=== PATIENT | female | born 1975 | race American Indian/Alaskan Native ===

== ENCOUNTER 2021-05-06 22:31 | Inpatient (IN) | payer OTHER ==
[2021-05-06] MEDS ORDERED: ONDANSETRON 4 MG/2 ML INJ IV ONE ×2 (22:34→23:33)
[2021-05-06] MEDS ORDERED: niCARdipine DRIP 40 MG/200 ML BAG IV ONE (22:42)
--- NOTE | 2021-05-06 23:05 | Cat Scan Report ---
CT HEAD WITHOUT CONTRAST INDICATION / CLINICAL INFORMATION: CODE STROKE PROTOCOL!!! Stroke-Like symptoms. TECHNIQUE: All CT scans at this location are performed using CT dose reduction for ALARA by means of automated exposure control. COMPARISON: None available. FINDINGS: BRAIN PARENCHYMA: No acute intracranial hemorrhage. 2 focal areas of hypoattenuation within the left cerebellar hemisphere. These appear to be at least subacute in age. Otherwise, no recent infarct. No significant mass effect or midline shift. VENTRICULAR SYSTEM/EXTRA-AXIAL SPACES: Ventricles are normal for age. No extra-axial fluid collection . ORBITS: Normal as visualized. SKELETAL SYSTEM/SOFT TISSUES: Normal bones and soft tissues. PARANASAL SINUSES/MASTOID AIR CELLS: No significant abnormality. ADDITIONAL FINDINGS: None. IMPRESSION: 1. 2 focal areas of hypoattenuation within the left cerebral hemisphere are most consistent with infa rct, though these areas appear to be at least subacute in age. Recommend correlation with MRI. 2. Otherwise, no acute intracranial abnormality. No acute intracranial hemorrhage. Signer Name: Long Romero MD Signed: 05/06/2021 11:01 PM Workstation Name: [id number]
[2021-05-06] MEDS ORDERED: CLOPIDOGREL 300 MG TAB PO ONE (23:15)
[2021-05-06] MEDS ORDERED: ASPIRIN 325 MG TAB PO ONE (23:15)
[2021-05-06] MEDS ORDERED: INSULIN REGULAR, HUMAN 100 UNITS/1 ML IV ONE (23:19)
--- NOTE | 2021-05-06 23:19 | Consultation ---
History of Present Illness History of present illness: [facility] Consult Note # Demographics Consult Type: Acute Stroke Level 1 (0-4.5 hrs) Patient Location: Emergency Room First Name: Leslie Pizarro Last Name: Ivy Date of : 1975 Age: 45 Gender: Female Time of Initial Page ( Time): 05/06/2021, 22:36 Time of Return Call ( Time): 05/06/2021, 22:36 # HPI Chief Complaint: weakness (focal) History: 45F with HTN, DM presents with left-sided weakness and tingling, trouble speaking. Symptom onset 2129. Has not been taking medications for several weeks. Was having a headache for a few days prior. BP 232/159 with EMS; fingerstick 497. Started vomiting on arrival to ED. Has history of sinus problems, thought she was having sinus headaches, but all the pain was in the back left side of the head. Pain stopped and she suddenly lost control of her left side. # Scores Time of exam and NIHSS (): 05/06/2021, 22:48 Level of Consciousness 1a: [0] = Alert; keenly responsive LOC Questions 1b: [0] = Answers both questions correctly LOC Commands 1c: [0] = Performs both tasks correctly Best Gaze 2: [0] = Normal Visual 3: [0] = No visual loss Facial Palsy 4: [1] = Minor paralysis Motor Arm Left 5a: [0] = No drift Motor Arm Right 5b: [0] = No drift Motor Leg Left 6a: [1] = Drift Motor Leg Right 6b: [0] = No drift Limb Ataxia 7: [1] = Present in one limb Sensory 8: [0] = Normal Best Language 9: [0] = No aphasia Dysarthria 10: [1] = [id number] dysarthria Extinction and Inattention 11: [0] = No abnormality NIHSS Total: 4 # Data Time Head CT personally read by me ( Time): 05/06/2021, 22:[address]: no bleed early ischemic change preliminarily reviewed by me, please refer to radiology read for official reading left cerebellar and occipital # Assessment Impression: Ischemic Stroke (Acute) # Plan Thrombolytic/Intervention: NOT IV Thrombolytic or IA Intervention Thrombolytic Exclusion (< 3 hour window): non-disabling deficit Intraarterial Exclusion: clinically consistent with small vessel disease Target Blood Pressure: SBP < 220 DBP < 105 Labs: hemoglobin A1c lipid panel Imaging: (urgency: routine): MR Angiogram Head without contrast MR Angiogram Neck with contrast MRI Brain without contrast Diagnostic Test: echo with bubble study Therapy/Evaluation: PT/OT evaluation speech/swallow consultation Medication: ASA 325 then 81 daily, Plavix 300 x1 then 75 daily x3 weeks (3 weeks DAPT then ASA monotherapy), atorvastatin 80 then tailor daily dose to LDL < 70 goal DVT Prophylaxis: SCD chemical DVT prophylaxis Other: permissive hypertension telemetry monitoring I have discussed my recommendations with the referring provider Additional Recommendations: Treatment of hyperglycemia to goal blood sugar 80- 180 # Logistics Telemedicine: Interactive 2 way audio and visual telecommunication technology was utilized during this visit Electronically signed at 05/06/2021 23:18 (Eastern Time) by Gio Ward MD Medications and Allergies Allergies Allergy/AdvReac Type Severity Reaction Status Date / Time No Known Allergies Allergy Unverified 05/06/21 22:36 Active Meds: Active Medications Atorvastatin Calcium (Atorvastatin 40 Mg Tab) 80 mg PO QHS NORMAN Nicardipine/Sodium Chloride (Cardene Drip 40 Mg/200 Ml) 40 mg in 200 mls @ 25 mls/hr IV ONCE ONE; Protocol Stop: 05/07/21 06:41 Physical Examination - Vital Signs Vital Signs: Vital Signs Temp Pulse Resp BP Pulse Ox 98 F 82 18 205/131 98 05/06/21 23:14 05/06/21 23:14 05/06/21 23:14 05/06/21 23:14 05/06/21 23:14 Results - Laboratory Findings Abnormal Lab Findings: Abnormal Labs 05/06/21 23:15 POC Glucose 494 H
[2021-05-06 23:21] LABS: Basophils # (Auto) 0.1 K/mm3 (0.0-0.1); Basophils % (Auto) 0.9 % (0.0-1.8); Eosinophils # (Auto) 0.1 K/mm3 (0.0-0.4); Eosinophils % (Auto) 0.9 % (0.0-4.3); Hematocrit 32.8 % (30.3-42.9); Hemoglobin 10.1 gm/dl (10.1-14.3); Lymphocytes # (Auto) 2.1 K/mm3 (1.2-5.4); Lymphocytes % (Auto) 14.9 % (13.4-35.0); Mean Corpuscular HGB Conc 31 % (30-34); Monocytes # (Auto) 0.8 K/mm3 (0.0-0.8); Monocytes % (Auto) 5.6 % (0.0-7.3); Platelet Count 497 K/mm3 (140-440); Red Blood Count 4.93 M/mm3 (3.65-5.03); Red Cell Distribution Width 19.3 % (13.2-15.2)
--- NOTE | 2021-05-06 23:26 | Emergency Department Report ---
ED Neuro Deficit HPI - General Chief Complaint: Neuro Symptoms/Deficit Stated Complaint: STROKE Time Seen by Provider: 05/06/21 22:34 Source: EMS Mode of arrival: Stretcher Limitations: No Limitations - History of Present Illness Initial Comments: Patient is a 45-year-old F Vincentian female with past medical history of hypertension and diabetes who is been medically noncompliant with medications for the last several weeks who is presenting with difficulty speaking and ataxia to the left upper extremity with weakness to the left arm and left leg. Patient states that for the last 2 days she has had headache which she attributed to some sinus issues. States she has felt some congestion. Patient states today at approximately 2130 she started having weakness to her left arm and leg. States she had difficulty walking. Patient with slurred speech and states it is difficult to control her left arm. She denies any chest pain shortness of breath fevers or chills. Patient states she has quite a bit of nausea. In route patient blood pressure was 230 systolic. - Related Data Allergies/Adverse Reactions: Allergies Allergy/AdvReac Type Severity Reaction Status Date / Time No Known Allergies Allergy Unverified 05/06/21 22:36 ED Review of Systems ROS: Stated complaint: STROKE Other details as noted in HPI Comment: All other systems reviewed and negative ED Past Medical Hx - Past Medical History Hx Hypertension: Yes Hx Diabetes: Yes - Social History Smoking Status: Never Smoker ED Neuro Physical Exam - General Limitations: No Limitations General appearance: alert, in distress (diaphoretic) Suspected Stroke: Yes - Head Head exam: Present: atraumatic, normocephalic - Eye Eye exam: Present: normal appearance, PERRL, EOMI - ENT ENT exam: Present: mucous membranes moist - Neck Neck exam: Present: normal inspection - Respiratory Respiratory exam: Present: normal lung sounds bilaterally. Absent: respiratory distress, wheezes, rales, rhonchi - Cardiovascular Cardiovascular Exam: Present: regular rate, normal rhythm, normal heart sounds. Absent: systolic murmur, diastolic murmur, rubs, gallop - GI/Abdominal GI/Abdominal exam: Present: soft, normal bowel sounds. Absent: distended, tenderness, guarding, rebound - Extremities Exam Extremities exam: Present: normal inspection - Back Exam Back exam: Present: normal inspection - Neurological Exam Neurological exam: Present: alert, oriented X3 - NIHSS Assessment Interval: Baseline 1a. Level of Consciousness: alert/keenly responsive 1b. LOC Questions: answers both correctly 1c. LOC Commands: performs tasks correctly 2. Best Gaze: normal 3. Visual: no visual loss 4. Facial Palsy: minor paralysis 5b. Motor Arm Right: no drift 5a. Motor Arm Left: drift 6a. Motor Leg Left: no drift 6b. Motor Leg Right: no drift 7. Limb Ataxia: present 1 limb 8. Sensory: normal 9. Best Language: mild/moderate aphasia 10. Dysarthria: normal 11. Extinction/Inattention: no abnormality Total Score: 4 Stroke Severity: Minor Stroke - Psychiatric Psychiatric exam: Present: normal affect, normal mood - Skin Skin exam: Present: warm, dry, intact, normal color. Absent: rash ED Course Vital Signs 05/06/21 05/06/21 05/06/21 23:07 23:14 23:30 Temperature 98 F Pulse Rate 84 82 86 Respiratory 15 18 16 Rate Blood Pressure 205/131 Blood Pressure 205/131 [Left] O2 Sat by Pulse 98 98 98 Oximetry 05/07/21 05/07/21 05/07/21 00:00 00:30 01:00 Temperature Pulse Rate 99 H 120 H 108 H Respiratory 10 L 16 10 L Rate Blood Pressure 185/118 172/115 163/102 Blood Pressure [Left] O2 Sat by Pulse 100 99 100 Oximetry - Lab Data Result diagrams: 05/06/21 23:13 05/06/21 23:13 Lab Results 05/06/21 05/06/21 05/06/21 Range/Units 23:13 23:13 23:13 WBC 13.9 H (4.5-11.0) K/mm3 RBC 4.93 (3.65-5.03) M/mm3 Hgb 10.1 (10.1-14.3) gm/dl Hct 32.8 (30.3-42.9) % MCV 67 L (79-97) fl MCH 21 L (28-32) pg MCHC 31 (30-34) % RDW 19.3 H (13.2-15.2) % Plt Count 497 H (140-440) K/mm3 Lymph % (Auto) 14.9 (13.4-35.0) % Hughes % (Auto) 5.6 (0.0-7.3) % Eos % (Auto) 0.9 (0.0-4.3) % Baso % (Auto) 0.9 (0.0-1.8) % Lymph # (Auto) 2.1 (1.2-5.4) K/mm3 Hughes # (Auto) 0.8 (0.0-0.8) K/mm3 Eos # (Auto) 0.1 (0.0-0.4) K/mm3 Baso # (Auto) 0.1 (0.0-0.1) K/mm3 Seg Neutrophils % 77.7 H (40.0-70.0) % Seg Neutrophils # 10.8 H (1.8-7.7) K/mm3 PT 12.0 L (12.2-14.9) Sec. INR 0.84 L (0.87-1.13) APTT 28.1 (24.2-36.6) Sec. Thrombin Time 17.0 (15.1-19.6) Sec. Sodium (137-145) mmol/L Potassium (3.6-5.0) mmol/L Chloride (98-107) mmol/L Carbon Dioxide (22-30) mmol/L Anion Gap mmol/L BUN (7-17) mg/dL Creatinine (0.6-1.2) mg/dL Estimated GFR ml/min BUN/Creatinine Ratio % Glucose (65-100) mg/dL POC Glucose (70-105) mg/dL Calcium (8.4-10.2) mg/dL Total Bilirubin (0.1-1.2) mg/dL AST (5-40) units/L ALT (7-56) units/L Alkaline Phosphatase (35-129) units/L Total Creatine Kinase 66 (30-135) units/L CK-MB (CK-2) 1.8 (0.0-4.0) ng/mL CK-MB (CK-2) Rel Index 2.7 (0-4) Troponin T 0.011 (0.00-0.029) ng/mL Total Protein (6.3-8.2) g/dL Albumin (3.9-5) g/dL Albumin/Globulin Ratio % Plasma/Serum Alcohol (0-0.07) % 05/06/21 05/06/21 05/06/21 Range/Units 23:13 23:13 23:15 WBC (4.5-11.0) K/mm3 RBC (3.65-5.03) M/mm3 Hgb (10.1-14.3) gm/dl Hct (30.3-42.9) % MCV (79-97) fl MCH (28-32) pg MCHC (30-34) % RDW (13.2-15.2) % Plt Count (140-440) K/mm3 Lymph % (Auto) (13.4-35.0) % Hughes % (Auto) (0.0-7.3) % Eos % (Auto) (0.0-4.3) % Baso % (Auto) (0.0-1.8) % Lymph # (Auto) (1.2-5.4) K/mm3 Hughes # (Auto) (0.0-0.8) K/mm3 Eos # (Auto) (0.0-0.4) K/mm3 Baso # (Auto) (0.0-0.1) K/mm3 Seg Neutrophils % (40.0-70.0) % Seg Neutrophils # (1.8-7.7) K/mm3 PT (12.2-14.9) Sec. INR (0.87-1.13) APTT (24.2-36.6) Sec. Thrombin Time (15.1-19.6) Sec. Sodium 130 L (137-145) mmol/L Potassium 3.5 L (3.6-5.0) mmol/L Chloride 92.5 L (98-107) mmol/L Carbon Dioxide 23 (22-30) mmol/L Anion Gap 18 mmol/L BUN 15 (7-17) mg/dL Creatinine 1.1 (0.6-1.2) mg/dL Estimated GFR > 60 ml/min BUN/Creatinine Ratio 14 % Glucose 529 H* (65-100) mg/dL POC Glucose 494 H (70-105) mg/dL Calcium 9.2 (8.4-10.2) mg/dL Total Bilirubin 0.40 (0.1-1.2) mg/dL AST 19 (5-40) units/L ALT 15 (7-56) units/L Alkaline Phosphatase 104 (35-129) units/L Total Creatine Kinase (30-135) units/L CK-MB (CK-2) (0.0-4.0) ng/mL CK-MB (CK-2) Rel Index (0-4) Troponin T (0.00-0.029) ng/mL Total Protein 8.9 H (6.3-8.2) g/dL Albumin 4.4 (3.9-5) g/dL Albumin/Globulin Ratio 1.0 % Plasma/Serum Alcohol < 0.01 (0-0.07) % - Radiology Data [address] [address] Cat Scan Report Signed Patient: BRIANNA MIXON MR #: [id number] : 1975 Acct:[id number] Age/Sex: 45 / F ADM Date: 05/06/21 Loc: ED Attending Dr: Ordering Physician: ARISTEO YOUSSEF MD Date of Service: 05/06/21 Procedure(s): CT head/brain wo con Accession Number(s): [id number] cc: ARISTEO YOUSSEF MD CT HEAD WITHOUT CONTRAST INDICATION / CLINICAL INFORMATION: CODE STROKE PROTOCOL!!! Stroke-Like symptoms. TECHNIQUE: All CT scans at this location are performed using CT dose reduction for ALARA by means of automated exposure control. COMPARISON: None available. FINDINGS: BRAIN PARENCHYMA: No acute intracranial hemorrhage. 2 focal areas of hypoattenuation within the left cerebellar hemisphere. These appear to be at least subacute in age. Otherwise, no recent infarc t. No significant mass effect or midline shift. VENTRICULAR SYSTEM/EXTRA-AXIAL SPACES: Ventricles are normal for age. No extra- axial fluid collection. ORBITS: Normal as visualized. SKELETAL SYSTEM/SOFT TISSUES: Normal bones and soft tissues. PARANASAL SINUSES/MASTOID AIR CELLS: No significant abnormality. ADDITIONAL FINDINGS: None. IMPRESSION: 1. 2 focal areas of hypoattenuation within the left cerebral hemisphere are most consistent with infarct, though these areas appear to be at least subacute in age. Recommend correlation with MRI. 2. Otherwise, no acute intracranial abnormality. No acute intracranial hemorrhage. Signer Name: Long Romero MD Signed: 05/06/2021 11:01 PM Workstation Name: [id number] [address] [address] XRay Report Signed Patient: BRIANNA MIXON MR #: [id number] : 1975 Acct:[id number] Age/Sex: 45 / F ADM Date: 05/06/21 Loc: ED Attending Dr: Ordering Physician: ARISTEO YOUSSEF MD Date of Service: 05/06/21 Procedure(s): XR chest 1V ap Accession Number(s): [id number] cc: ARISTEO YOUSSEF MD Fluoro Time In Minutes: . XR chest 1V ap INDICATION / CLINICAL INFORMATION: stroke symptoms. COMPARISON: None available. FINDINGS: SUPPORT DEVICES: None. HEART /PULMONARY VASCULATURE: No significant abnormality. LUNGS / PLEURA: No significant pulmonary or pleural abnormality. No pneumothorax. ADDITIONAL FINDINGS: No significant additional findings. IMPRESSION: 1. No acute findings. Signer Name: Long Romero MD Signed: 05/07/2021 12:07 AM Workstation Name: [id number] - Medical Decision Making Patient is a 45-year-old F [place]ian female has had a headache for several days who is presenting with 1 to 2 hours of slurred speech and some left arm ataxia and weakness on the left side. CT shows some subacute issues of the right cerebellar however patient could still be having some acute issues causing her symptoms today. No great debility was found therefore it was suggested by our telemetry neuro physicians to not give TPA at this time. Patient placed on a Cardene drip to control her blood pressure. Given insulin and fluids for her blood glucose. Patient has [employer] insurance and we spoke with Dr. Askew who suggested the patient stay here since she is on a Cardene drip. Patient admitted to the hospitalist service. Critical care attestation.: If time is entered above; I have spent that time in minutes in the direct care of this critically ill patient, excluding procedure time. ED Disposition Clinical Impression: CVA (cerebral vascular accident), Hypertensive emergency without congestive heart failure, Hyperglycemia Disposition: OP ADMIT IP TO THIS HOSP Is pt being admited?: Yes Does the pt Need Aspirin: No Condition: Poor Instructions: Hypertension (ED) Time of Disposition: 02:11
[2021-05-06 23:30] LABS: INR 0.84 (0.87-1.13)
[2021-05-06 23:44] LABS: Creatine Kinase MB 1.8 ng/mL (0.0-4.0)
[2021-05-06 23:45] LABS: Alanine Aminotransferase 15 units/L (7-56); Albumin 4.4 g/dL (3.9-5); BUN/Creatinine Ratio 14; Blood Urea Nitrogen 15 mg/dL (7-17); Calcium 9.2 mg/dL (8.4-10.2); Hemolysis Index 2; Mean Corpuscular Volume 67 fl (79-97)
[2021-05-06 23:46] LABS: Partial Thromboplastin Time 28.1 Sec. (24.2-36.6)
[2021-05-06] MEDS ORDERED: SODIUM CHLORIDE 0.9% 1000 ML 1,000 ML IV ONE (23:59)
--- NOTE | 2021-05-07 00:11 | XRay Report ---
. XR chest 1V ap INDICATION / CLINICAL INFORMATION: stroke symptoms. COMPARISON: None available. FINDINGS: SUPPORT DEVICES: None. HEART /PULMONARY VASCULATURE: No significant abnormality. LUNGS / PLEURA: No significant pulmonary or pleural abnormality. No pneumothorax. ADDITIONAL FINDINGS: No significant additional findings. IMPRESSION: 1. No acute findings. Signer Name: Long Romero MD Signed: 05/07/2021 12:07 AM Workstation Name: [email or web address] ([email or web address]
[2021-05-07] MEDS ORDERED: MORPHINE 4 MG/1 ML INJ IV ONE (01:26)
[2021-05-07] MEDS ORDERED: LORazepam 2 MG/ML VIAL IV ONE (01:39)
[2021-05-07] MEDS ORDERED: DEXTROSE 50% IN WATER (25GM) 50 ML SYRINGE IV PRN (03:26)
[2021-05-07] MEDS ORDERED: SODIUM CHLORIDE 0.9% 1000 ML 1,000 ML IV SCH (03:30)
--- NOTE | 2021-05-07 03:35 | History and Physical Report ---
History of Present Illness Date of examination: 05/07/21 Date of admission: 05/07/21 02:31 Chief complaint: Difficulty speaking ataxia left-sided weakness History of present illness: 45-year-old female with history of hypertension and diabetes who is been medically noncompliant with medications for the last several weeks who is presenting with difficulty speaking and ataxia and left upper extremity with weakness to the left arm and left leg. Patient states that for the last 2 days she has had headache which she attributed to some sinus issues. States she has felt some congestion. Patient states today at approximately 2130 she started having weakness to her left arm and leg. States she had difficulty walking. Patient with slurred speech and states it is difficult to control her left arm. She denies any chest pain shortness of breath fevers or chills. Patient states she has quite a bit of nausea. In route patient blood pressure was 230 systolic. In the emergency room initial CT scan showed 2 focal areas of hypoattenuation within the left cerebral hemisphere are most consistent with infarct, though these areas appeared to be at least subacute in age recommend correlation with MRI #2 otherwise no acute intracranial abnormality no acute intracranial hemorrhage. Patient is seen and evaluated in the emergency room by telemetry neurology Past History Past Medical History: diabetes, hypertension Medications and Allergies Allergies Allergy/AdvReac Type Severity Reaction Status Date / Time No Known Allergies Allergy Unverified 05/06/21 22:36 Active Meds: Active Medications Aspirin (Aspirin 325 Mg Tab) 325 mg PO QDAY NORMAN Atorvastatin Calcium (Atorvastatin 40 Mg Tab) 80 mg PO QHS NORMAN Dextrose (Dextrose 50% In Water (25gm) 50 Ml Syringe) 50 ml IV Q30MIN PRN; Protocol PRN Reason: Hypoglycemia Nicardipine/Sodium Chloride (Cardene Drip 40 Mg/200 Ml) 40 mg in 200 mls @ 25 mls/hr IV ONCE ONE; Protocol Stop: 05/07/21 06:41 Last Admin: 05/06/21 23:32 Dose: 5 mg/hr, 25 mls/hr Documented by: Sodium Chloride (Nacl 0.9% 1000 Ml) 1,000 mls @ 100 mls/hr IV DIRECT NORMAN Insulin Human Lispro (Insulin Lispro 100 Unit/Ml) 0 unit SUB-Q Q6HR NORMAN; Protocol Sodium Chloride (Sodium Chloride 0.9% 10 Ml Flush Syringe) 10 ml INJ PRN PRN PRN Reason: LINE FLUSH Review of Systems Neurological: weakness, numbness, tingling, ataxia, change in speech Exam - Constitutional Vitals: Temp Pulse Resp BP Pulse Ox 98 F 108 H 10 L 163/102 100 05/06/21 23:14 05/07/21 01:00 05/07/21 01:00 05/07/21 01:00 05/07/21 01:00 General appearance: Present: no acute distress, well-nourished - EENT Eyes: Present: PERRL ENT: hearing intact, clear oral mucosa - Neck Neck: Present: supple, normal ROM - Respiratory Respiratory effort: normal Respiratory: bilateral: CTA - Cardiovascular Heart Sounds: Present: S1 & S2. Absent: rub, click - Extremities Extremities: pulses symmetrical, No edema Peripheral Pulses: within normal limits - Abdominal General gastrointestinal: Present: soft, non-tender, non-distended, normal bowel sounds Female genitourinary: Present: normal - Integumentary Integumentary: Present: clear, warm, dry - Musculoskeletal Musculoskeletal: gait normal, strength equal bilaterally - Psychiatric Psychiatric: appropriate mood/affect, intact judgment & insight - Neurologic Neurologic: CNII-XII intact, moves all extremities, other (Difficulty in his speech. Left-sided weakness) HEART Score - HEART Score Troponin: Troponin T 0.011 ng/mL (0.00-0.029) 05/06/21 23:13 Results - Labs CBC & Chem 7: 05/06/21 23:13 05/06/21 23:13 Labs: Laboratory Last Values WBC 13.9 K/mm3 (4.5-11.0) H 05/06/21 23:13 RBC 4.93 M/mm3 (3.65-5.03) 05/06/21 23:13 Hgb 10.1 gm/dl (10.1-14.3) 05/06/21 23:13 Hct 32.8 % (30.3-42.9) 05/06/21 23:13 MCV 67 fl (79-97) L 05/06/21 23:13 MCH 21 pg (28-32) L 05/06/21 23:13 MCHC 31 % (30-34) 05/06/21 23:13 RDW 19.3 % (13.2-15.2) H 05/06/21 23:13 Plt Count 497 K/mm3 (140-440) H 05/06/21 23:13 Lymph % (Auto) 14.9 % (13.4-35.0) 05/06/21 23:13 [place] % (Auto) 5.6 % (0.0-7.3) 05/06/21 23:13 Eos % (Auto) 0.9 % (0.0-4.3) 05/06/21 23:13 Baso % (Auto) 0.9 % (0.0-1.8) 05/06/21 23:13 Lymph # (Auto) 2.1 K/mm3 (1.2-5.4) 05/06/21 23:13 [place] # (Auto) 0.8 K/mm3 (0.0-0.8) 05/06/21 23:13 Eos # (Auto) 0.1 K/mm3 (0.0-0.4) 05/06/21 23:13 Baso # (Auto) 0.1 K/mm3 (0.0-0.1) 05/06/21 23:13 Seg Neutrophils % 77.7 % (40.0-70.0) H 05/06/21 23:13 Seg Neutrophils # 10.8 K/mm3 (1.8-7.7) H 05/06/21 23:13 PT 12.0 Sec. (12.2-14.9) L 05/06/21 23:13 INR 0.84 (0.87-1.13) L 05/06/21 23:13 APTT 28.1 Sec. (24.2-36.6) 05/06/21 23:13 Thrombin Time 17.0 Sec. (15.1-19.6) 05/06/21 23:13 Sodium 130 mmol/L (137-145) L 05/06/21 23:13 Potassium 3.5 mmol/L (3.6-5.0) L 05/06/21 23:13 Chloride 92.5 mmol/L (98-107) L 05/06/21 23:13 Carbon Dioxide 23 mmol/L (22-30) 05/06/21 23:13 Anion Gap 18 mmol/L 05/06/21 23:13 BUN 15 mg/dL (7-17) 05/06/21 23:13 Creatinine 1.1 mg/dL (0.6-1.2) 05/06/21 23:13 Estimated GFR > 60 ml/min 05/06/21 23:13 BUN/Creatinine Ratio 14 % 05/06/21 23:13 Glucose 529 mg/dL (65-100) H* 05/06/21 23:13 POC Glucose 494 mg/dL (70-105) H 05/06/21 23:15 Calcium 9.2 mg/dL (8.4-10.2) 05/06/21 23:13 Total Bilirubin 0.40 mg/dL (0.1-1.2) 05/06/21 23:13 AST 19 units/L (5-40) 05/06/21 23:13 ALT 15 units/L (7-56) 05/06/21 23:13 Alkaline Phosphatase 104 units/L (35-129) 05/06/21 23:13 Total Creatine Kinase 66 units/L (30-135) 05/06/21 23:13 CK-MB (CK-2) 1.8 ng/mL (0.0-4.0) 05/06/21 23:13 CK-MB (CK-2) Rel Index 2.7 (0-4) 05/06/21 23:13 Troponin T 0.011 ng/mL (0.00-0.029) 05/06/21 23:13 Total Protein 8.9 g/dL (6.3-8.2) H 05/06/21 23:13 Albumin 4.4 g/dL (3.9-5) 05/06/21 23:13 Albumin/Globulin Ratio 1.0 % 05/06/21 23:13 Plasma/Serum Alcohol < 0.01 % (0-0.07) 05/06/21 23:13 - Imaging and Cardiology Chest x-ray: report reviewed CT Scan - head: report reviewed Assessment and Plan VTE prophylaxis?: Chemical Plan of care discussed with patient/family: Yes - Patient Problems (1) CVA (cerebral vascular accident) Current Visit: Yes Status: Acute Plan to address problem: Admit the patient to the medical telemetry. Aspirin 325 mg p.o. daily. Lipitor 80 mg p.o. daily. PT OT and speech evaluation. MRI of the brain with and without contrast MRI of the brain and neck with and without contrast echocardiogram. Neurology consult (2) Hyperglycemia Current Visit: Yes Status: Acute Plan to address problem: We will put the patient on nothing by mouth. IV fluid normal saline at the rate of 100 cc/h. Humalog sliding scale every 6 hours with moderate dose coverage. Recheck BMP in the morning (3) Hypertensive emergency without congestive heart failure Current Visit: Yes Status: Acute Plan to address problem: Hydralazine 10 mg IV every 6 hours as needed .we will monitor the blood pressure closely .if needed we put the patient on Cardene drip (4) DVT prophylaxis Current Visit: Yes Status: Acute Plan to address problem: Heparin 5000 units subcu every 8 hours for DVT prophylaxis. Protonix 40 mg p.o. daily for GI prophylaxis. Patient is a full code
[2021-05-07] MEDS: HEPARIN 5,000 UNIT/1 ML VIAL SUB-Q SCH ×3 (06:42→21:24)
[2021-05-07] MEDS: INSULIN LISPRO 100 UNIT/ML SUB-Q SCH ×5 (06:43→23:36)
[2021-05-07] MEDS: hydrALAZINE 20 MG/1 ML INJ IV PRN ×2 (07:22→19:36)
[2021-05-07] MEDS ORDERED: PANTOPRAZOLE 40 MG TAB PO SCH (07:30)
[2021-05-07] MEDS ORDERED: niCARdipine 50 MG in SODIUM CHLORIDE 0.9% 250ML 230 ML IV SCH (08:00)
--- NOTE | 2021-05-07 08:16 | Consultation ---
History of Present Illness Consult date: 05/07/21 Reason for Consult: left side weakness,unsteady gait,uncontrolled HTN and DM History of present illness: Difficulty speaking ataxia left-sided weakness History of present illness: 45-year-old female with history of hypertension and diabetes who is been medically noncompliant with medications for the last several weeks who is presenting with difficulty speaking and ataxia and left upper extremity with weakness to the left arm and left leg. Patient states that for the last 2 days she has had headache which she attributed to some sinus issues. States she has felt some congestion. Patient states today at approximately 2130 she started having weakness to her left arm and leg. States she had difficulty walking. Patient with slurred speech and states it is difficult to control her left arm. She denies any chest pain shortness of breath fevers or chills. Patient states she has quite a bit of nausea. In route patient blood pressure was 230 systolic. In the emergency room initial CT scan showed 2 focal areas of hypoattenuation within the left cerebral hemisphere are most consistent with infarct, though these areas appeared to be at least subacute in age recommend correlation with MRI #2 otherwise no acute intracranial abnormality no acute intracranial hemorrhage. Patient is seen and evaluated in the emergency room by telemetry neurology pt. is not a candidate for TPA nor thrombectomy Past History Past Medical History: diabetes, hypertension Medications and Allergies Allergies Allergy/AdvReac Type Severity Reaction Status Date / Time No Known Allergies Allergy Unverified 05/06/21 22:36 Active Meds: Active Medications Aspirin (Aspirin 325 Mg Tab) 325 mg PO QDAY [facility] Atorvastatin Calcium (Atorvastatin 40 Mg Tab) 80 mg PO QHS [facility] Dextrose (Dextrose 50% In Water (25gm) 50 Ml Syringe) 50 ml IV Q30MIN PRN; Protocol PRN Reason: Hypoglycemia Nicardipine/Sodium Chloride (Cardene Drip 40 Mg/200 Ml) 40 mg in 200 mls @ 25 mls/hr IV ONCE ONE; Protocol Stop: 05/07/21 06:41 Last Admin: 05/06/21 23:32 Dose: 5 mg/hr, 25 mls/hr Documented by: Sodium Chloride (Nacl 0.9% 1000 Ml) 1,000 mls @ 100 mls/hr IV DIRECT [facility] Insulin Human Lispro (Insulin Lispro 100 Unit/Ml) 0 unit SUB-Q Q6HR [facility]; Protocol Sodium Chloride (Sodium Chloride 0.9% 10 Ml Flush Syringe) 10 ml INJ PRN PRN PRN Reason: LINE FLUSH Review of Systems Neurological: weakness, numbness, tingling, ataxia, change in speech Past History Past Medical History: diabetes, hypertension Medications and Allergies Allergies Allergy/AdvReac Type Severity Reaction Status Date / Time No Known Allergies Allergy Unverified 05/06/21 22:36 Active Meds: Active Medications Aspirin (Aspirin 81 Mg Tab Chew) [address] [facility] Atorvastatin Calcium (Atorvastatin 40 Mg Tab) 80 mg PO QHS [facility] Clopidogrel Bisulfate (Clopidogrel 75 Mg Tab) [address] [facility] Stop: 05/28/21 09:59 Dextrose (Dextrose 50% In Water (25gm) 50 Ml Syringe) 0 ml IV Q30MIN PRN; Protocol PRN Reason: Hypoglycemia Famotidine (Famotidine 20 Mg Tab) [address] [facility] Heparin Sodium (Porcine) (Heparin 5,000 Unit/1 Ml Vial) 5,000 unit SUB-Q Q8HR [facility] Last Admin: 05/07/21 06:42 Dose: 5,000 unit Documented by: Hydralazine HCl (Hydralazine 20 Mg/1 Ml Inj) 10 mg IV Q6H PRN PRN Reason: Blood Pressure Last Admin: 05/07/21 07:22 Dose: 10 mg Documented by: Sodium Chloride (Nacl 0.9% 1000 Ml) 1,000 mls @ 100 mls/hr IV DIRECT [facility] Last Admin: 05/07/21 06:44 Dose: 100 mls/hr Documented by: Nicardipine HCl 50 mg/ Sodium (Chloride) 250 mls @ 25 mls/hr IV TITR [facility]; Protocol Insulin Human Lispro (Insulin Lispro 100 Unit/Ml) 0 unit SUB-Q Q6HR [facility]; Protocol Last Admin: 05/07/21 06:43 Dose: 8 unit Documented by: Sodium Chloride (Sodium Chloride 0.9% 10 Ml Flush Syringe) 10 ml IV PRN PRN PRN Reason: LINE FLUSH Physical Examination - Vital Signs Vital Signs: Vital Signs Pulse Resp Pulse Ox 84 15 98 05/06/21 23:07 05/06/21 23:07 05/06/21 23:07 - Constitutional General appearance: comfortable - EENT EENT: Present: PERRL, mucous membranes moist - Respiratory Respiratory: Present: chest non-tender, lungs clear, rhonchi - Cardiovascular Cardiovascular: Present: regular rate, normal S1, normal S2 Extremities: Present: no peripheral edema bilatateraly, no clubbing, cyanosis - Gastrointestinal Gastrointestinal: Present: normoactive bowel sounds - Integumentary Integumentary: Present: normal - Neurologic Cranial nerve examination: PERRL, EOMI, other (left facial droop) Speech examination: other (slightly slurred) Sensorimotor examination: other (left pronator drift and left lower slight weakness and dysmetria with left upper , sensation is intact reflexes 1= bilateral , gait not done ) - Level of Consciousness 1a. Level of Consciousness: alert/keenly responsive - LOC Questions 1b. LOC Questions: answers both correctly - LOC Command 1c. LOC Commands: performs tasks correctly - Best Gaze 2. Best Gaze: normal - Visual 3. Visual: no visual loss - Facial Palsy 4. Facial Palsy: minor paralysis - Motor Arm 5a. Motor Arm Left: drift 5b. Motor Arm Right: no drift - Motor Leg 6a. Motor Leg Left: drift 6b. Motor Leg Right: no drift - Limb Ataxia 7. Limb Ataxia: present 1 limb - Sensory 8. Sensory: normal - Best Language 9. Best Language: no aphasia - Dysarthria 10. Dysarthria: normal - Extinction and Inattention 11. Extinction/Inattention: no abnormality - Scoring Total Score: 4 Stroke Severity: Minor Stroke Results - Laboratory Findings CBC and BMP: 05/06/21 23:13 05/06/21 23:13 Abnormal Lab Findings: Abnormal Labs 05/06/21 05/06/21 05/06/21 23:13 23:13 23:13 WBC 13.9 H MCV 67 L MCH 21 L RDW 19.3 H Plt Count 497 H Seg Neutrophils % 77.7 H Seg Neutrophils # 10.8 H PT 12.0 L INR 0.84 L Sodium 130 L Potassium 3.5 L Chloride 92.5 L Glucose 529 H* POC Glucose Total Protein 8.9 H 05/06/21 05/07/21 05/07/21 23:15 03:54 06:31 WBC MCV MCH RDW Plt Count Seg Neutrophils % Seg Neutrophils # PT INR Sodium Potassium Chloride Glucose POC Glucose 494 H 421 H 414 H Total Protein Assessment and Plan Assessment and Plan VTE prophylaxis?: Chemical Plan of care discussed with patient/family: Yes - Patient Problems # CVA (cerebral vascular accident) -this is 45 ys old femal presented witha new onset left side clumsiness and unsteady gait yesterday -Ct brain is remarkable for X2 hypodense lesions in left cerebellar area -MRA and MRI are pending -Echo is pending -she is in NSR and tachycardia -BS#550 -LDL#pending -A1C# pending -Started on ASA 325 mg and Plavix 75 mg -Admit to ICU for better control of DM , No AG -PT/ST evaluate # Hyperglycemia -We will put the patient on nothing by mouth. - IV fluid normal saline at the rate of 100 cc/h. -Humalog sliding scale every 6 hours with moderate dose coverage. - Recheck BMP in the morning # Hypertensive emergency without congestive heart failure -Hydralazine 10 mg IV every 6 hours as needed . -we will monitor the blood pressure closely . -if needed we put the patient on Cardene drip # DVT prophylaxis -Heparin 5000 units subcu every 8 hours for DVT prophylaxis. - Protonix 40 mg p.o. daily for GI prophylaxis. -Patient is a full code will follow
[2021-05-07] MEDS ORDERED: ASPIRIN 325 MG TAB PO SCH (10:00)
[2021-05-07] MEDS: ASPIRIN 81 MG TAB CHEW PO SCH (10:40)
[2021-05-07] MEDS: CLOPIDOGREL 75 MG TAB PO SCH (10:40)
--- NOTE | 2021-05-07 10:56 | Electrocardiograph Report ---
[facility] Test Date: 2021-05-06 Test Time: 23:31:40 Pat Name: BRIANNA MIXON Department: CCU Room: A255 1 Gender: F Postdoctoral Fellow: IVONNE : 1975 Requested By: ARISTEO YOUSSEF Order Number: [id number] Reading MD: Darvin Lentz Measurements Intervals [place] Rate: 84 P: 40 NM: 152 QRS: -1 QRSD: 90 T: 74 QT: 388 QTc: 457 Interpretive Statements Sinus rhythm Probable left atrial enlargement Probable left ventricular hypertrophy Nonspecific T abnrm, anterolateral leads No previous ECG available for comparison Electronically Signed On 05-07-2021 10:56:06 EDT by Darvin Lentz
[2021-05-07] MEDS: FAMOTIDINE 20 MG/2 ML INJ IV SCH (10:57)
[2021-05-07] MEDS ORDERED: labetaloL 200 MG in DEXTROSE 5% IN WATER 160 ML IV SCH (11:00)
[2021-05-07] MEDS ORDERED: INSULIN GLARGINE 100 UNITS/ML SUB-Q SCH (11:00)
--- NOTE | 2021-05-07 11:15 | Consultation ---
History of Present Illness - Reason for Consult Consult date: 05/07/21 Stroke with HTNsive Emergency - History of Present Illness 45 y/o female with admitted with stroke like symptoms and hypertensive emergency. CT showed 2 areas concerning for infarct. MRI pending. Past History Past Medical History: diabetes, hypertension Medications and Allergies Allergies Allergy/AdvReac Type Severity Reaction Status Date / Time No Known Allergies Allergy Unverified 05/06/21 22:36 Active Meds: Active Medications Aspirin (Aspirin 81 Mg Tab Chew) 81 mg PO QDAY [facility] Last Admin: 05/07/21 10:40 Dose: Not Given Documented by: Atorvastatin Calcium (Atorvastatin 40 Mg Tab) 80 mg PO QHS [facility] Clopidogrel Bisulfate (Clopidogrel 75 Mg Tab) 75 mg PO QDAY [facility] Stop: 05/28/21 09:59 Last Admin: 05/07/21 10:40 Dose: Not Given Documented by: Dextrose (Dextrose 50% In Water (25gm) 50 Ml Syringe) 0 ml IV Q30MIN PRN; Protocol PRN Reason: Hypoglycemia Famotidine (Famotidine 20 Mg/2 Ml Inj) 20 mg IV DAILY [facility] Last Admin: 05/07/21 10:57 Dose: 20 mg Documented by: Heparin Sodium (Porcine) (Heparin 5,000 Unit/1 Ml Vial) 5,000 unit SUB-Q Q8HR [facility] Last Admin: 05/07/21 06:42 Dose: 5,000 unit Documented by: Hydralazine HCl (Hydralazine 20 Mg/1 Ml Inj) 10 mg IV Q6H PRN PRN Reason: Blood Pressure Last Admin: 05/07/21 07:22 Dose: 10 mg Documented by: Labetalol HCl 200 mg/ Dextrose 200 mls @ 120 mls/hr IV TITR [facility]; Protocol Insulin Glargine (Insulin Glargine 100 Units/Ml) 15 units SUB-Q QAMDIAB [facility] Insulin Human Lispro (Insulin Lispro 100 Unit/Ml) 0 unit SUB-Q Q6HR [facility]; Protocol Last Admin: 05/07/21 06:43 Dose: 8 unit Documented by: Insulin Human Lispro (Insulin Lispro 100 Unit/Ml) 0 unit SUB-Q Q6HR [facility]; Protocol Sodium Chloride (Sodium Chloride 0.9% 10 Ml Flush Syringe) 10 ml IV PRN PRN PRN Reason: LINE FLUSH Review of Systems All systems: negative Breasts: deferred Exam - Constitutional Vitals: Temp Pulse Resp BP Pulse Ox 98.3 F 140 H 16 187/113 96 05/07/21 07:52 05/07/21 10:30 05/07/21 10:30 05/07/21 10:30 05/07/21 10:30 General appearance: Present: no acute distress, well-nourished, obese - EENT Eyes: Present: PERRL, EOM intact ENT: hearing intact, clear oral mucosa, dentition normal - Neck Neck: Present: supple, normal ROM - Respiratory Respiratory effort: normal Respiratory: bilateral: CTA - Cardiovascular Rhythm: other (sinus tachycardia) - Abdominal General gastrointestinal: Present: soft, non-distended - Rectal Rectal Exam: deferred Results - Labs CBC & Chem 7: 05/06/21 23:13 05/06/21 23:13 Labs: Abnormal lab results 05/06/21 05/06/21 05/06/21 Range/Units 23:13 23:13 23:13 WBC 13.9 H (4.5-11.0) K/mm3 MCV 67 L (79-97) fl MCH 21 L (28-32) pg RDW 19.3 H (13.2-15.2) % Plt Count 497 H (140-440) K/mm3 Seg Neutrophils % 77.7 H (40.0-70.0) % Seg Neutrophils # 10.8 H (1.8-7.7) K/mm3 PT 12.0 L (12.2-14.9) Sec. INR 0.84 L (0.87-1.13) Sodium 130 L (137-145) mmol/L Potassium 3.5 L (3.6-5.0) mmol/L Chloride 92.5 L (98-107) mmol/L Glucose 529 H* (65-100) mg/dL POC Glucose (70-105) mg/dL Total Protein 8.9 H (6.3-8.2) g/dL 05/06/21 05/07/21 05/07/21 Range/Units 23:15 03:54 06:31 WBC (4.5-11.0) K/mm3 MCV (79-97) fl MCH (28-32) pg RDW (13.2-15.2) % Plt Count (140-440) K/mm3 Seg Neutrophils % (40.0-70.0) % Seg Neutrophils # (1.8-7.7) K/mm3 PT (12.2-14.9) Sec. INR (0.87-1.13) Sodium (137-145) mmol/L Potassium (3.6-5.0) mmol/L Chloride (98-107) mmol/L Glucose (65-100) mg/dL POC Glucose 494 H 421 H 414 H (70-105) mg/dL Total Protein (6.3-8.2) g/dL - Imaging and Cardiology Chest x-ray: image reviewed (clear) Assessment and Plan 45 y/o female with HTNsive emergency and possible stroke 1. Will start labetalol drip 2. Follow up MRI 3. Stable for transfer if [place] wants to move patient CCT 31 minutes.
[2021-05-07 11:26] LABS: Mean Corpuscular HGB Conc 30 % (30-34); Platelet Count 508 K/mm3 (140-440); Red Blood Count 5.13 M/mm3 (3.65-5.03); Red Cell Distribution Width 19.3 % (13.2-15.2)
[2021-05-07 11:32] LABS: Hematocrit 34.2 % (30.3-42.9); Hemoglobin 10.2 gm/dl (10.1-14.3); Mean Corpuscular Volume 67 fl (79-97)
[2021-05-07 11:47] LABS: BUN/Creatinine Ratio 13; Blood Urea Nitrogen 14 mg/dL (7-17); Calcium 9.4 mg/dL (8.4-10.2); Hemolysis Index 0
[2021-05-07 11:50] LABS: Chol/HDL Ratio 3.88 %
--- NOTE | 2021-05-07 12:37 | Progress Note ---
Assessment and Plan Assessment and plan: 45-year-old female with history of hypertension and diabetes who is been medically noncompliant with medications for the last several weeks who is presenting with difficulty speaking and ataxia and left upper extremity with weakness to the left arm and left leg. Patient states that for the last 2 days she has had headache which she attributed to some sinus issues. States she has felt some congestion. Patient states today at approximately 2130 she started having weakness to her left arm and leg. States she had difficulty walking. Patient with slurred speech and states it is difficult to control her left arm. She denies any chest pain shortness of breath fevers or chills. Patient states she has quite a bit of nausea. In route patient blood pressure was 230 systolic. In the emergency room initial CT scan showed 2 focal areas of hypoattenuation within the left cerebral hemisphere are most consistent with infarct, though these areas appeared to be at least subacute in age recommend correlation with MRI #2 otherwise no acute intracranial abnormality no acute intracranial hemorrhage. Patient is seen and evaluated in the emergency room by telemetry neurology. No TPA given Pt admitted to ICU for ongoing care NKDA Home meds per breana on pts phone coreg 25 bid asa prasugrel 10 daily humalog 70-30 10 U BID nifedipine ER 90 mg daily atorvastatin 80 mg hs hctz 25 daily metformin 500 mg PO BID PMH [place] 2020 DM obese HTN HLD med non adherence LMP last week PCP [place] Pt is known as Joni in [place] system- registration called - no answer; RN to follow up with name correction/correlation of names NEURO CVA ER CT- see results neuro consulted- no TPA NIHSS score on admit in ER 4; today 6 left sided weakness; pronator drift; weakness l leg; hoarse; dysphagia; alert and oriented but with slurred speech; ataxia (L side when ambulatory in ER) aspiration risk PRN pain meds IV med non adherence MRA neck left vertebral hypoplastic or occluded MRI brain small lacunar infarcts-- 1720 Dr. 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 CV hypertensive emergency - SBP 230 on arrival to ER; PFO on ECHO, ST (baseline unknown cause); hx OH; hyperlipidemia; elevated triglycerides ac HTN - on coreg 25 bid and nifedipine ER 90 daily at home echo - pos PFO; see report trop neg/ CK neg was on cardene overnight but was very labile and requiring the nurse to titrate on and off ST- pt reports her HR is always high-- to 130's post MRI (note on coreg and nifedipine ER 90 daily at home) 1330 Discussed BP with neuro- new goal 170 systolic and 100 Diastolic labetolol gtt if needed resume home meds when clinically appropriate asa/plavix/statin RESP-nap NC PRN pulm hygiene aspiration precautions GI- failed BSS sp CVA failed BSS speech has evaluated and again failed swallow they will follow aspiration precautions strict NPO ngt placed with position confirmed for use pepcid - nap NS to KVO - due to contribution to blood pressure hand strict I/O follow and replace electrolytes as needed HEME- sp CVA VTE SCD trends CBC no bleeding on exam SQH VTE ID-nap follow temp and WBC curve covid neg ENDO- hx DM; obese follow blood sugars lantus added- titrate as needed mod resistance SSI BQ6h blood glucose resume home diabetic meds when appropriate A1C 13 on admit 1745 persistent hyperglycemia this margie- given 15 u reg hum insulin bg 300-500 since admitted; gap 18-19 [address] Solis at [facility], mechanical unit repairer, has contacted and is recontacting radiology to have CT/MRI/MRA images pushed to [place] DR Will Solis will review images and call Dr Harding with recs. If pt does not go to [place] tonight- call [place] in AM for transfer to [place] facility Dr Dahl updated Disposition Plan: tbd Total Time Spent with Patient (Minutes): 120 History Interval history: 45-year-old female with history of hypertension and diabetes who is been medically noncompliant with medications for the last several weeks who is presenting with difficulty speaking and ataxia and left upper extremity with weakness to the left arm and left leg. Patient states that for the last 2 days she has had headache which she attributed to some sinus issues. States she has felt some congestion. Patient states today at approximately 2130 she started having weakness to her left arm and leg. States she had difficulty walking. Patient with slurred speech and states it is difficult to control her left arm. She denies any chest pain shortness of breath fevers or chills. Patient states she has quite a bit of nausea. In route patient blood pressure was 230 systolic. In the emergency room initial CT scan showed 2 focal areas of hypoattenuation within the left cerebral hemisphere are most consistent with infarct, though these areas appeared to be at least subacute in age recommend correlation with MRI #2 otherwise no acute intracranial abnormality no acute intracranial hemorrhage. Patient is seen and evaluated in the emergency room by telemetry neurology. No TPA given Admitted to ICU for further work up [facility] overnight Hospitalist Physical - Constitutional Vitals: Temp Pulse Resp BP Pulse Ox 98 F 141 H 18 176/118 97 05/07/21 12:00 05/07/21 11:15 05/07/21 11:15 05/07/21 11:15 05/07/21 11:15 General appearance: Present: no acute distress, well-nourished, obese - EENT Eyes: Present: PERRL, EOM intact ENT: hearing intact - Neck Neck: Present: supple, normal ROM - Respiratory Respiratory effort: normal - Cardiovascular Rhythm: other (tachycardia) Heart Sounds: Present: S1 & S2 - Extremities Extremities: no ischemia Peripheral Pulses: within normal limits - Abdominal General gastrointestinal: soft - Integumentary Integumentary: Present: clear, warm - Psychiatric Psychiatric: appropriate mood/affect (flat) - Neurologic Neurologic: focal deficits - Additional findings Additional findings: PERRLA DYSPHAGIA DYSPHASIA L SIDED WEAKNESS L SIDE FACIAL DROOP ATAXIA L SIDE - Allied Health Allied health notes reviewed: nursing, social work, case management HEART Score - HEART Score History: Slightly suspicious EKG: Normal Age: < 45 Risk factors: 1-2 risk factors Troponin: Troponin T 0.014 ng/mL (0.00-0.029) 05/07/21 11:06 Troponin: < normal limit HEART Score: 1 - Critical Actions Critical Actions: 0-3 pts:0.9-1.7%risk of adverse cardiac event.Candidate for discharge Results - Labs CBC & Chem 7: 05/07/21 11:06 05/07/21 11:06 Labs: Laboratory Last Values WBC 16.7 K/mm3 (4.5-11.0) H 05/07/21 11:06 RBC 5.13 M/mm3 (3.65-5.03) H 05/07/21 11:06 Hgb 10.2 gm/dl (10.1-14.3) 05/07/21 11:06 Hct 34.2 % (30.3-42.9) 05/07/21 11:06 MCV 67 fl (79-97) L 05/07/21 11:06 MCH 20 pg (28-32) L 05/07/21 11:06 MCHC 30 % (30-34) 05/07/21 11:06 RDW 19.3 % (13.2-15.2) H 05/07/21 11:06 Plt Count 508 K/mm3 (140-440) H 05/07/21 11:06 Lymph % (Auto) 14.9 % (13.4-35.0) 05/06/21 23:13 [place] % (Auto) 5.6 % (0.0-7.3) 05/06/21 23:13 Eos % (Auto) 0.9 % (0.0-4.3) 05/06/21 23:13 Baso % (Auto) 0.9 % (0.0-1.8) 05/06/21 23:13 Lymph # (Auto) 2.1 K/mm3 (1.2-5.4) 05/06/21 23:13 [place] # (Auto) 0.8 K/mm3 (0.0-0.8) 05/06/21 23:13 Eos # (Auto) 0.1 K/mm3 (0.0-0.4) 05/06/21 23:13 Baso # (Auto) 0.1 K/mm3 (0.0-0.1) 05/06/21 23:13 Seg Neutrophils % 77.7 % (40.0-70.0) H 05/06/21 23:13 Seg Neutrophils # 10.8 K/mm3 (1.8-7.7) H 05/06/21 23:13 PT 12.0 Sec. (12.2-14.9) L 05/06/21 23:13 INR 0.84 (0.87-1.13) L 05/06/21 23:13 APTT 28.1 Sec. (24.2-36.6) 05/06/21 23:13 Thrombin Time 17.0 Sec. (15.1-19.6) 05/06/21 23:13 Sodium 136 mmol/L (137-145) L 05/07/21 11:06 Potassium 4.0 mmol/L (3.6-5.0) 05/07/21 11:06 Chloride 96.6 mmol/L (98-107) L 05/07/21 11:06 Carbon Dioxide 24 mmol/L (22-30) 05/07/21 11:06 Anion Gap 19 mmol/L 05/07/21 11:06 BUN 14 mg/dL (7-17) 05/07/21 11:06 Creatinine 1.1 mg/dL (0.6-1.2) 05/07/21 11:06 Estimated GFR > 60 ml/min 05/07/21 11:06 BUN/Creatinine Ratio 13 % 05/07/21 11:06 Glucose 500 mg/dL (65-100) H 05/07/21 11:06 POC Glucose 471 mg/dL (70-105) H 05/07/21 11:28 Hemoglobin A1c 13.3 % (4-6) H 05/07/21 11:06 Calcium 9.4 mg/dL (8.4-10.2) 05/07/21 11:06 Total Bilirubin 0.40 mg/dL (0.1-1.2) 05/06/21 23:13 AST 19 units/L (5-40) 05/06/21 23:13 ALT 15 units/L (7-56) 05/06/21 23:13 Alkaline Phosphatase 104 units/L (35-129) 05/06/21 23:13 Total Creatine Kinase 66 units/L (30-135) 05/06/21 23:13 CK-MB (CK-2) 1.8 ng/mL (0.0-4.0) 05/06/21 23:13 CK-MB (CK-2) Rel Index 2.7 (0-4) 05/06/21 23:13 Troponin T 0.014 ng/mL (0.00-0.029) 05/07/21 11:06 Total Protein 8.9 g/dL (6.3-8.2) H 05/06/21 23:13 Albumin 4.4 g/dL (3.9-5) 05/06/21 23:13 Albumin/Globulin Ratio 1.0 % 05/06/21 23:13 Triglycerides 264 mg/dL (2-149) H 05/07/21 11:06 Cholesterol 202 mg/dL (50-199) H 05/07/21 11:06 LDL Cholesterol Direct 122 mg/dL (50-130) 05/07/21 11:06 HDL Cholesterol 52 mg/dL (40-59) 05/07/21 11:06 Cholesterol/HDL Ratio 3.88 % 05/07/21 11:06 Plasma/Serum Alcohol < 0.01 % (0-0.07) 05/06/21 23:13 - Imaging and Cardiology EKG: image reviewed Chest x-ray: image reviewed CT Scan - head: image reviewed MRI - head: image reviewed Hand/IV: Voiding Method External Female Catheter Active Medications - Current Medications Current Medications: Generic Name Dose Route Start Last Admin Trade Name Freq PRN Reason Stop Dose Admin Aspirin 81 mg 05/07/21 10:00 05/07/21 10:40 Aspirin 81 Mg Tab Chew PO Not Given QDAY [facility] Atorvastatin Calcium 80 mg 05/07/21 22:00 Atorvastatin 40 Mg Tab PO QHS [facility] Clopidogrel Bisulfate 75 mg 05/07/21 10:00 05/07/21 10:40 Clopidogrel 75 Mg Tab PO 05/28/21 09:59 Not Given QDAY [facility] Dextrose 0 ml 05/07/21 03:26 Dextrose 50% In Water (25gm) 50 Ml Syringe IV Q30MIN PRN Hypoglycemia Protocol Famotidine 20 mg 05/07/21 10:00 05/07/21 10:57 Famotidine 20 Mg/2 Ml Inj IV 20 mg DAILY [facility] Administration Heparin Sodium (Porcine) 5,000 unit 05/07/21 06:00 05/07/21 06:42 Heparin 5,000 Unit/1 Ml Vial SUB-Q 5,000 unit Q8HR [facility] Administration Hydralazine HCl 10 mg 05/07/21 03:38 05/07/21 07:22 Hydralazine 20 Mg/1 Ml Inj IV 10 mg Q6H PRN Administration Blood Pressure Labetalol HCl 200 mg/ Dextrose 200 mls @ 120 mls/hr 05/07/21 11:00 IV TITR [facility] Protocol 2 MG/MIN Insulin Glargine 15 units 05/07/21 11:00 Insulin Glargine 100 Units/Ml SUB-Q QAMDIAB [facility] Insulin Human Lispro 0 unit 05/07/21 12:00 Insulin Lispro 100 Unit/Ml SUB-Q Q6HR [facility] Protocol Labetalol HCl 10 mg 05/07/21 11:39 Labetalol 20 Mg/4 Ml Inj IV Q6HR PRN Hypertension Sodium Chloride 10 ml 05/07/21 03:26 Sodium Chloride 0.9% 10 Ml Flush Syringe IV PRN PRN LINE FLUSH Nutrition/Malnutrition Assess - Attestation Statement I have reviewed and agreed w/ Malnutrition eval & tx plan: Yes
--- NOTE | 2021-05-07 13:26 | Magnetic Resonance Report ---
MRA NECK 05/07/2021 INDICATION / CLINICAL INFORMATION: cva, LT SIDED WEAKNESS. TECHNIQUE: Routine MRA of the neck are performed. 3-D/MIP reformats postprocessed. Percentage stenosis is deter mined by direct quantitative measurements of distal internal carotid artery diameter compared with no rmal reference segments or by criteria similar to NASCET where applicable. COMPARISON: None available. FINDINGS: Unenhanced MR angiographic images of the neck were obtained. 3D/MIP reformats were post-processed. Carotid bifurcations: No evidence of bifurcation stenosis. Common carotid arteries: No significant abnormality. Cervical internal carotid arteries: No significant abnormality. Cervical vertebral arteries: The left vertebral artery appears to be hypoplastic or occluded. Right v ertebral artery is unremarkable. Visible aortic arch: Not included on this exam. IMPRESSION: No evidence of bifurcation stenosis. Signer Name: Ed Bowen MD Signed: 05/07/2021 1:21 PM Workstation Name: [id number]
--- NOTE | 2021-05-07 13:30 | Magnetic Resonance Report ---
MRI BRAIN 05/07/2021 INDICATION / CLINICAL INFORMATION: stroke, LT SIDED WEAKNESS. TECHNIQUE: Multiplanar, multisequence MR images of the brain were obtained. COMPARISON: CT brain 05/06/2021 FINDINGS: BRAIN / INTRACRANIAL CONTENTS: Unenhanced MR images of the brain demonstrate evidence of acute ischem ic injury in the inferior medial aspect of the left cerebellar hemisphere, with involvement of the la teral dorsal aspect of the medulla. Increased diffusion weighted signal and T2-weighted signal is pre sent, corresponding to the area of abnormality seen on the earlier CT. There is no associated hemorrh age. There is no evidence of acute supratentorial abnormality. Ventricles and sulci are normal in size and shape. There is no evidence of hemorrhage or mass. Small lacunar changes are present in the left basal ganglia, left thalamus, and left centrum semioval e. There are no abnormal extra-axial fluid collections. EXTRACRANIAL: Unremarkable CRANIOCERVICAL JUNCTION: No significant abnormality. VASCULAR FLOW-VOIDS: Does not appear to be any good flow void flow signal present in the left distal vertebral artery. MR angiogram is reported separately. 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 Signer Name: Ed Bowen MD Signed: 05/07/2021 1:26 PM Workstation Name: [id number]
--- NOTE | 2021-05-07 13:33 | Magnetic Resonance Report ---
MRA HEAD 05/07/2021 INDICATION / CLINICAL INFORMATION: stroke, lT SIDED WEAKNESS. TECHNIQUE: Routine MRA of the head is performed. 3-D/MIP reformats postprocessed. COMPARISON: None available. FINDINGS: MRA HEAD: Intracranial internal carotid arteries: No significant abnormality. Anterior cerebral arteries: No significant abnormality. Middle cerebral arteries: No significant abnormality. Intracranial vertebral arteries: There is absence of flow signal in left distal vertebral artery. Rig ht distal vertebral artery is unremarkable. Basilar artery: No significant abnormality. Posterior cerebral arteries: No significant abnormality. IMPRESSION: Absence of flow signal in the left distal vertebral artery. Otherwise unremarkable. Signer Name: Ed Bowen MD Signed: 05/07/2021 1:28 PM Workstation Name: [id number]
[2021-05-07] MEDS: HYDROmorphone 1 MG/1 ML INJ IV PRN ×3 (13:44→21:28)
[2021-05-07] MEDS ORDERED: METOPROLOL TARTRATE 5 MG/5 ML INJ IV ONE (14:00)
[2021-05-07] MEDS ORDERED: ALBUMIN HUMAN 25% (12.5 GM/50 ML) INJ IV ONE (15:00)
--- NOTE | 2021-05-07 16:00 | XRay Report ---
ABDOMEN 1 VIEW 05/07/2021 2:54 PM INDICATION / CLINICAL INFORMATION: DHT placement. COMPARISON: None available. FINDINGS: TUBES / LINES: Tip of the esophagogastric tube projects the level the body of the stomach. BOWEL GAS PATTERN: No significant abnormality. FREE AIR / EXTRALUMINAL GAS: None. ADDITIONAL FINDINGS: No significant additional findings. IMPRESSION: 1. Esophagogastric tube in expected position. Signer Name: Femi Vidal MD Signed: 05/07/2021 3:56 PM Workstation Name: [id number]
--- NOTE | 2021-05-07 19:44 | Event Note ---
Date: 05/07/210: Dr. Dahl called CT department and spoke to Nasir who confirmed that the images were pushed over to [place] about 30 mins prior. Nasir stated no confirmation was obtained if images were received. Dr. Harding is aware of contact from [place] Dr. Ivy after review of images.
[2021-05-08] MEDS: hydrALAZINE 20 MG/1 ML INJ IV PRN ×2 (02:14→09:05)
[2021-05-08] MEDS: HYDROmorphone 1 MG/1 ML INJ IV PRN ×4 (02:18→17:05)
[2021-05-08] MEDS: HEPARIN 5,000 UNIT/1 ML VIAL SUB-Q SCH ×2 (05:23→13:48)
[2021-05-08] MEDS: INSULIN LISPRO 100 UNIT/ML SUB-Q SCH ×6 (05:23→18:27)
[2021-05-08 06:11] LABS: Hematocrit 31.9 % (30.3-42.9); Hemoglobin 9.9 gm/dl (10.1-14.3); Mean Corpuscular HGB Conc 31 % (30-34); Platelet Count 445 K/mm3 (140-440); Red Blood Count 4.79 M/mm3 (3.65-5.03); Red Cell Distribution Width 19.3 % (13.2-15.2)
[2021-05-08 06:17] LABS: Mean Corpuscular Volume 67 fl (79-97)
[2021-05-08 06:23] LABS: Calcium 9.5 mg/dL (8.4-10.2)
[2021-05-08] MEDS ORDERED: INSULIN GLARGINE 100 UNITS/ML SUB-Q SCH (08:00)
[2021-05-08] MEDS ORDERED: SODIUM CHLORIDE 0.9% 1000 ML 1,000 ML IV SCH (08:00)
[2021-05-08] MEDS: ASPIRIN 81 MG TAB CHEW PO SCH (09:04)
[2021-05-08] MEDS: CLOPIDOGREL 75 MG TAB PO SCH (09:04)
[2021-05-08] MEDS: FAMOTIDINE 20 MG/2 ML INJ IV SCH (09:05)
--- NOTE | 2021-05-08 09:15 | Progress Note ---
Assessment and Plan Assessment and Plan VTE prophylaxis?: Chemical Plan of care discussed with patient/family: Yes - Patient Problems # CVA (cerebral vascular accident) -this is 45 ys old femal presented with a new onset left side clumsiness and unsteady gait yesterday -Ct brain is remarkable for X2 hypodense lesions in left cerebellar area -MRA is suggestive of left distal vertebral a. occlusion and MRI brain showed left inf. cerebellar and lat. medullary infarct. -Echo is pending -she is in NSR and tachycardia -BS#550 -LDL#52-- Lipitor 40 mg when possible. -A1C#13.3 -Started on ASA 81 mg and Plavix 75 mg -Admit to ICU for better control of DM , No AG -PT/ST evaluate -Repeat CT brain today # Hyperglycemia -We will put the patient on nothing by mouth. - IV fluid normal saline at the rate of 100 cc/h. -Humalog sliding scale every 6 hours with moderate dose coverage. - Recheck BMP in the morning -A1C <7 # Hypertensive emergency without congestive heart failure -Hydralazine 10 mg IV every 6 hours as needed . -we will monitor the blood pressure closely . -if needed we put the patient on Cardene drip -BP <150/80 # DVT prophylaxis -Heparin 5000 units subcu every 8 hours for DVT prophylaxis. - Protonix 40 mg p.o. daily for GI prophylaxis. -Patient is a full code will follow Subjective Date of service: 05/08/21 Interval history: pt. complaining of neck pain as well as mild left side weakness left foot pain and swallowing difficulty Objective - Vital Sign Vital Signs - 12hr 05/07/21 05/07/21 05/07/21 21:15 21:28 21:30 Temperature Pulse Rate 138 H 139 H Respiratory 18 17 17 Rate Blood Pressure 154/96 154/96 O2 Sat by Pulse 94 94 Oximetry 05/07/21 05/07/21 05/07/21 21:36 21:45 22:00 Temperature Pulse Rate 136 H 138 H 137 H Respiratory 18 15 16 Rate Blood Pressure 156/102 166/102 157/100 O2 Sat by Pulse 98 95 95 Oximetry 05/07/21 05/07/21 05/07/21 22:15 22:30 22:45 Temperature Pulse Rate 137 H 138 H 138 H Respiratory 15 16 16 Rate Blood Pressure 159/99 157/103 154/101 O2 Sat by Pulse 95 95 95 Oximetry 05/07/21 05/07/21 05/07/21 23:00 23:15 23:30 Temperature Pulse Rate 137 H 135 H 135 H Respiratory 16 15 16 Rate Blood Pressure 155/101 156/103 165/104 O2 Sat by Pulse 96 95 95 Oximetry 05/07/21 05/07/21 05/08/21 23:34 23:45 00:00 Temperature 100.7 F H Pulse Rate 136 H 138 H Respiratory 16 18 Rate Blood Pressure 156/106 O2 Sat by Pulse 95 97 Oximetry 05/08/21 05/08/21 05/08/21 00:15 00:30 00:45 Temperature Pulse Rate 139 H 141 H 136 H Respiratory 18 18 17 Rate Blood Pressure 154/103 171/109 163/108 O2 Sat by Pulse 94 94 95 Oximetry 05/08/21 05/08/21 05/08/21 01:00 01:15 01:30 Temperature Pulse Rate 135 H 136 H 135 H Respiratory 16 16 17 Rate Blood Pressure 170/108 169/116 168/112 O2 Sat by Pulse 95 95 96 Oximetry 05/08/21 05/08/21 05/08/21 01:45 02:00 02:12 Temperature Pulse Rate 133 H 130 H 131 H Respiratory 16 16 Rate Blood Pressure 160/108 174/117 O2 Sat by Pulse 95 94 Oximetry 05/08/21 05/08/21 05/08/21 02:14 02:15 02:30 Temperature Pulse Rate 132 H 133 H 137 H Respiratory 14 17 Rate Blood Pressure 173/116 170/113 142/82 O2 Sat by Pulse 95 96 Oximetry 05/08/21 05/08/21 05/08/21 02:45 03:00 03:15 Temperature Pulse Rate 137 H 141 H 142 H Respiratory 18 17 18 Rate Blood Pressure 135/85 139/86 144/87 O2 Sat by Pulse 95 94 93 Oximetry 05/08/21 05/08/21 05/08/21 03:30 03:40 03:45 Temperature 99.9 F H Pulse Rate 141 H 141 H Respiratory 18 17 Rate Blood Pressure 141/87 142/89 O2 Sat by Pulse 95 94 Oximetry 05/08/21 05/08/21 05/08/21 04:00 04:15 04:30 Temperature Pulse Rate 139 H 140 H 137 H Respiratory 18 18 17 Rate Blood Pressure 144/92 146/92 148/92 O2 Sat by Pulse 95 94 95 Oximetry 05/08/21 05/08/21 05/08/21 04:45 05:00 06:00 Temperature Pulse Rate 140 H 136 H 139 H Respiratory 18 18 14 Rate Blood Pressure 145/97 160/102 181/119 O2 Sat by Pulse 96 95 94 Oximetry 05/08/21 05/08/21 05/08/21 07:00 07:57 08:00 Temperature 99.6 F Pulse Rate 137 H 131 H Respiratory 16 17 Rate Blood Pressure 181/123 182/119 O2 Sat by Pulse 96 95 Oximetry 05/08/21 08:12 Temperature Pulse Rate Respiratory Rate Blood Pressure O2 Sat by Pulse 98 Oximetry - General Apperance Constitutional: uncomfortable - EENT EENT: PERRL, mucous membranes moist - Respiratory Respiratory: lungs clear, rhonchi - Cardiovascular Cardiovascular: regular rate, normal S1, normal S2 Extremities: no peripheral edema bilat, no clubbing, cyanosis - Gastrointestinal Gastrointestinal: normoactive bowel sounds - Integumentary Integumentary: normal - Neurologic Cranial nerve examination: PERRL, EOMI, other (left facial droop , no diplopia , possible facial sensory impairment all left side ) Detailed motor examination: other (left pronantor drift and slight left side w eakness ) Cerebellar examination: ataxia, dysmetria (left sided) - Laboratory Findings CBC and BMP: 05/08/21 05:21 05/08/21 05:21 Abnormal Lab Findings: Abnormal Labs 05/06/21 05/06/21 05/06/21 23:13 23:13 23:13 WBC 13.9 H RBC Hgb MCV 67 L MCH 21 L RDW 19.3 H Plt Count 497 H Seg Neutrophils % 77.7 H Seg Neutrophils # 10.8 H PT 12.0 L INR 0.84 L Sodium 130 L Potassium 3.5 L Chloride 92.5 L BUN Creatinine Glucose 529 H* POC Glucose Hemoglobin A1c Total Protein 8.9 H Triglycerides Cholesterol 05/06/21 05/07/21 05/07/21 23:15 03:54 06:31 WBC RBC Hgb MCV MCH RDW Plt Count Seg Neutrophils % Seg Neutrophils # PT INR Sodium Potassium Chloride BUN Creatinine Glucose POC Glucose 494 H 421 H 414 H Hemoglobin A1c Total Protein Triglycerides Cholesterol 07/05/07/21 05/07/21 11:06 11:06 11:06 WBC 16.7 H RBC 5.13 H Hgb MCV 67 L MCH 20 L RDW 19.3 H Plt Count 508 H Seg Neutrophils % Seg Neutrophils # PT INR Sodium 136 L Potassium Chloride 96.6 L BUN Creatinine Glucose 500 H POC Glucose Hemoglobin A1c Total Protein Triglycerides 264 H Cholesterol 202 H 05/07/21 05/07/21 05/07/21 11:06 11:28 17:31 WBC RBC Hgb MCV MCH RDW Plt Count Seg Neutrophils % Seg Neutrophils # PT INR Sodium Potassium Chloride BUN Creatinine Glucose POC Glucose 471 H 390 H Hemoglobin A1c 13.3 H Total Protein Triglycerides Cholesterol 05/07/21 05/08/21 05/08/21 23:12 05:15 05:21 WBC 23.0 H RBC Hgb 9.9 L MCV 67 L MCH 21 L RDW 19.3 H Plt Count 445 H Seg Neutrophils % Seg Neutrophils # PT INR Sodium Potassium Chloride BUN Creatinine Glucose POC Glucose 420 H 388 H Hemoglobin A1c Total Protein Triglycerides Cholesterol 05/08/21 05:21 WBC RBC Hgb MCV MCH RDW Plt Count Seg Neutrophils % Seg Neutrophils # PT INR Sodium Potassium Chloride BUN 27 H Creatinine 2.5 H D Glucose 410 H POC Glucose Hemoglobin A1c Total Protein Triglycerides Cholesterol
[2021-05-08] MEDS ORDERED: SIMPLE SYRUP 15 ML FEEDTUBE PRN ×2 (10:00)
[2021-05-08] MEDS ORDERED: SODIUM BICARBONATE 325 MG TAB FEEDTUBE PRN (10:00)
[2021-05-08] MEDS ORDERED: LIPASE 10,500/PROTEASE 25,000/AMYLASE 43,750 (UNITS) DR CAP FEEDTUBE PRN (10:00)
[2021-05-08] MEDS ORDERED: LIDOCAINE 5% 1 EACH PATCH TD SCH (10:00)
[2021-05-08] MEDS ORDERED: carvediloL 25 MG TAB PO SCH (10:00)
--- NOTE | 2021-05-08 10:00 | XRay Report ---
LEFT FOOT 1 VIEW(S) INDICATION / CLINICAL INFORMATION: left foot pain ,r/o fracture COMPARISON: None available. FINDINGS: BONES / JOINT(S): No displaced fracture No significant arthritis. SOFT TISSUES: No significant abnormality. ADDITIONAL FINDINGS: None. Signer Name: Renard Velasquez DO Signed: 05/08/2021 9:56 AM Workstation Name: [id number]
--- NOTE | 2021-05-08 12:42 | Cat Scan Report ---
NONENHANCED CT SCAN OF THE HEAD: INDICATION / CLINICAL INFORMATION: 45 years Female; cva. TECHNIQUE: Routine CT head without contrast. All CT scans at this location are performed using CT dos e reduction for ALARA by means of automated exposure control. COMPARISON: MR scan of the cervical spine 05/07/[address] scan of the head from 05/06/2021 FINDINGS: BRAIN / INTRACRANIAL CONTENTS: In the MRI scan, subacute infarction was seen in the left PICA territo ry with involvement of the medulla also; no hemorrhagic changes; no significant mass effect over the fourth ventricle; fourth ventricle in midline; no progression of infarction since the MRI scan; no hy drocephalus No acute/subacute parenchymal lesion in the cerebral hemispheres CRANIOCERVICAL JUNCTION: No significant abnormality. ORBITS: No significant abnormality of visualized orbits. SINUSES / MASTOIDS: No significant abnormality of the visualized paranasal sinuses or mastoid air luisana ls. ADDITIONAL FINDINGS: None. IMPRESSION: Left PICA territory infarction has not progressed; no hemorrhage; no hydrocephalus Signer Name: Diane Paul MD Signed: 05/08/2021 12:38 PM Workstation Name: [id number]
--- NOTE | 2021-05-08 12:43 | Progress Note ---
Assessment and Plan 45 y/o female with HTNsive emergency and possible stroke 05/08/21: Spoke with neuro marketing operations consultant who feels that MRI interpretation is incorrect and patient does not require transfer for invasive therapy. Patient is a [facility] patient and clinically she is stable for transfer to a [facility] facility. She takes Coreg at home so this has been started, and can titrate up as tolerated or needed. Labetalol drip never got started on yesterday. From a critical care standpoint, does not require ICU care anymore and can be transferred out. Discussed on rounds this am with ICU team. 1. Will start labetalol drip 2. Follow up MRI 3. Stable for transfer if [facility] wants to move patient CCT 31 minutes. Subjective Date of service: 05/08/21 Interval history: No acute events. Discrepancy on MRI read and [facility] Winder read of imaging. Patient clinically stable. Complains of neck and foot pain. Objective - Constitutional Vitals: Vital Signs - 12hr 05/08/21 05/08/21 05/08/21 00:45 01:00 01:15 Temperature Pulse Rate 136 H 135 H 136 H Respiratory 17 16 16 Rate Blood Pressure 163/108 170/108 169/116 O2 Sat by Pulse 95 95 95 Oximetry 05/08/21 05/08/21 05/08/21 01:30 01:45 02:00 Temperature Pulse Rate 135 H 133 H 130 H Respiratory 17 16 16 Rate Blood Pressure 168/112 160/108 174/117 O2 Sat by Pulse 96 95 94 Oximetry 05/08/21 05/08/21 05/08/21 02:12 02:14 02:15 Temperature Pulse Rate 131 H 132 H 133 H Respiratory 14 Rate Blood Pressure 173/116 170/113 O2 Sat by Pulse 95 Oximetry 05/08/21 05/08/21 05/08/21 02:30 02:45 03:00 Temperature Pulse Rate 137 H 137 H 141 H Respiratory 17 18 17 Rate Blood Pressure 142/82 135/85 139/86 O2 Sat by Pulse 96 95 94 Oximetry 05/08/21 05/08/21 05/08/21 03:15 03:30 03:40 Temperature 99.9 F H Pulse Rate 142 H 141 H Respiratory 18 18 Rate Blood Pressure 144/87 141/87 O2 Sat by Pulse 93 95 Oximetry 07/14/21 07/14/21 07/14/21 03:45 04:00 04:15 Temperature Pulse Rate 141 H 139 H 140 H Respiratory 17 18 18 Rate Blood Pressure 142/89 144/92 146/92 O2 Sat by Pulse 94 95 94 Oximetry 05/08/21 05/08/21 05/08/21 04:30 04:45 05:00 Temperature Pulse Rate 137 H 140 H 136 H Respiratory 17 18 18 Rate Blood Pressure 148/92 145/97 160/102 O2 Sat by Pulse 95 96 95 Oximetry 05/08/21 05/08/21 05/08/21 06:00 07:00 07:57 Temperature 99.6 F Pulse Rate 139 H 137 H Respiratory 14 16 Rate Blood Pressure 181/119 181/123 O2 Sat by Pulse 94 96 Oximetry 05/08/21 05/08/21 05/08/21 08:00 08:12 09:00 Temperature Pulse Rate 131 H 133 H Respiratory 17 15 Rate Blood Pressure 182/119 182/119 O2 Sat by Pulse 95 98 99 Oximetry 05/08/21 05/08/21 05/08/21 09:03 09:05 10:00 Temperature Pulse Rate 130 H 129 H 115 H Respiratory 13 Rate Blood Pressure 185/120 185/120 137/86 O2 Sat by Pulse 92 Oximetry 05/08/21 05/08/21 11:00 12:00 Temperature 99 F Pulse Rate 103 H Respiratory 16 Rate Blood Pressure 133/86 O2 Sat by Pulse 95 Oximetry General appearance: Present: mild distress, well-nourished, obese - EENT ENT: hearing intact - Neck Neck: supple - Respiratory Respiratory effort: normal Respiratory: bilateral: CTA - Breasts Breasts: deferred - Cardiovascular Rhythm: other (sinus tach) Heart Sounds: Present: S1 & S2 - Labs CBC & Chem 7: 05/08/21 05:21 05/08/21 05:21 Labs: Abnormal lab results 05/07/21 05/07/21 05/08/21 Range/Units 17:31 23:12 05:15 WBC (4.5-11.0) K/mm3 Hgb (10.1-14.3) gm/dl MCV (79-97) fl MCH (28-32) pg RDW (13.2-15.2) % Plt Count (140-440) K/mm3 BUN (7-17) mg/dL Creatinine (0.6-1.2) mg/dL Glucose (65-100) mg/dL POC Glucose 390 H 420 H 388 H (70-105) mg/dL 05/08/21 05/08/21 05/08/21 Range/Units 05:21 05:21 11:48 WBC 23.0 H (4.5-11.0) K/mm3 Hgb 9.9 L (10.1-14.3) gm/dl MCV 67 L (79-97) fl MCH 21 L (28-32) pg RDW 19.3 H (13.2-15.2) % Plt Count 445 H (140-440) K/mm3 BUN 27 H (7-17) mg/dL Creatinine 2.5 H D (0.6-1.2) mg/dL Glucose 410 H (65-100) mg/dL POC Glucose 264 H (70-105) mg/dL Medications & Allergies - Medications Allergies/Adverse Reactions: Allergies No Known Allergies Allergy (Unverified 05/06/21 22:36) Active Medications: Generic Name Dose Route Start Last Admin Trade Name Freq PRN Reason Stop Dose Admin Lipase/Protease/Amylase 1 each 05/08/21 10:00 Lipase 10,500/Protease 25,000/Amylase 43,750 (Units) Dr Rodriguez FEEDTUBE PRN PRN For Clogged Feeding Tube Aspirin 81 mg 05/07/21 10:00 05/08/21 09:04 Aspirin 81 Mg Tab Chew PO 81 mg QDAY NORMAN Administration Atorvastatin Calcium 40 mg 05/08/21 22:00 Atorvastatin 40 Mg Tab PO QHS NORMAN Carvedilol 25 mg 05/08/21 10:00 05/08/21 09:03 Carvedilol 25 Mg Tab PO 25 mg BID NORMAN Administration Clopidogrel Bisulfate 75 mg 05/07/21 10:00 05/08/21 09:04 Clopidogrel 75 Mg Tab PO 05/28/21 09:59 75 mg QDAY NORMAN Administration Dextrose 0 ml 05/07/21 03:26 Dextrose 50% In Water (25gm) 50 Ml Syringe IV Q30MIN PRN Hypoglycemia Protocol Famotidine 20 mg 05/07/21 10:00 05/08/21 09:05 Famotidine 20 Mg/2 Ml Inj IV 20 mg DAILY NORMAN Administration Heparin Sodium (Porcine) 5,000 unit 05/07/21 06:00 05/08/21 05:23 Heparin 5,000 Unit/1 Ml Vial SUB-Q 5,000 unit Q8HR NORMAN Administration Hydralazine HCl 10 mg 05/07/21 03:38 05/08/21 09:05 Hydralazine 20 Mg/1 Ml Inj IV 10 mg Q6H PRN Administration Blood Pressure Hydromorphone HCl 0.25 mg 05/07/21 13:34 05/08/21 09:05 Hydromorphone 1 Mg/1 Ml Inj IV 0.25 mg Q3H PRN Administration Pain , Severe (7-10) Sodium Chloride 1,000 mls @ 100 mls/hr 05/08/21 08:00 05/08/21 09:15 Nacl 0.9% 1000 Ml IV 100 mls/hr DIRECT NORMAN Administration Insulin Glargine 20 units 05/08/21 08:00 05/08/21 09:04 Insulin Glargine 100 Units/Ml SUB-Q 20 units QAMDIAB NORMAN Administration Insulin Human Lispro 0 unit 05/07/21 12:00 05/08/21 05:23 Insulin Lispro 100 Unit/Ml SUB-Q 2 unit Q6HR NORMAN Administration Protocol Insulin Human Lispro 10 unit 05/08/21 08:00 05/08/21 09:04 Insulin Lispro 100 Unit/Ml SUB-Q 10 unit Q6HR NORMAN Administration Insulin Human Regular 15 units 05/08/21 19:30 Insulin Regular, Human 100 Units/1 Ml SUB-Q 05/08/21 19:31 ONCE ONE Labetalol HCl 10 mg 05/07/21 11:39 Labetalol 20 Mg/4 Ml Inj IV Q6HR PRN Hypertension Lidocaine 1 each 05/08/21 10:00 05/08/21 11:19 Lidocaine 5% 1 Each Patch TD 1 each QDAY NORMAN Administration Simple Syrup 15 ml 05/08/21 10:00 Simple Syrup 15 Ml FEEDTUBE PRN PRN Hypoglycemia Simple Syrup 30 ml 05/08/21 10:00 Simple Syrup 15 Ml FEEDTUBE PRN PRN Hypoglycemia Sodium Bicarbonate 325 mg 05/08/21 10:00 Sodium Bicarbonate 325 Mg Tab FEEDTUBE PRN PRN For Clogged Feeding Tube Sodium Chloride 10 ml 05/07/21 03:26 Sodium Chloride 0.9% 10 Ml Flush Syringe IV PRN PRN LINE FLUSH HEART Score - HEART Score EKG: Normal Age: < 45 Risk factors: 1-2 risk factors Troponin: Troponin T 0.014 ng/mL (0.00-0.029) 05/07/21 11:06 Troponin: < normal limit - Critical Actions Critical Actions: 0-3 pts:0.9-1.7%risk of adverse cardiac event.Candidate for discharge
--- NOTE | 2021-05-08 12:52 | Cat Scan Report ---
CT NECK WITHOUT CONTRAST HISTORY: Neck pain COMPARISON: None. TECHNIQUE: Routine CT of the neck is performed without intravenous contrast. [facility] are performed using CT dose reduction for ALARA by means of automated exposure control CONTRAST: None FINDINGS: Sagittal gastric tube in place Skull Base: No significant abnormality. Parotid, Carotid, Retropharyngeal, Prevertebral, Pharyngeal Mucosal, and Electron [employer]er Spaces: Soft tiss ue swelling in the left tonsillar fossae area within lower CT attenuation; Inflammatory changes Poste rior procedures changes; the airway is displaced across the midline in the oral cavity but not compro mised; contrast enhanced CT scan would be helpful Airway: Patent; airway in the oral cavity is displaced towards the right side Lymphatics: Reactive lymph nodes at level 2; enlarged lymph nodes at level 3 and level 4 more on the right left side measuring 16 mm; size of these nodes are bothersome any: Contrast enhanced CT would b e further helpful Vasculature: No significant abnormality. Osseous Structures: No significant abnormality Additional findings: Enlarged left lobe of the thyroid gland displacing the trachea towards the right side IMPRESSION: Swollen left tonsillar fossa in the oropharynx mildly displacing the airway; Inflammatory changes in the tonsil Post procedure changes Enlarged left lobe of the thyroid gland Reactive lymph nodes on the left side at level 2, level 3 and level 4; enlarged nodes at level 3 and 4 measure more than 15 mm; bothersome; contrast enhanced CT scan would be of further help Signer Name: Diane Paul MD Signed: 05/08/2021 12:48 PM Workstation Name: [id number]
[2021-05-08] MEDS ORDERED: AMPICILLIN/SULBACTA 1.5GM/50ML 1.5 GM/50 ML BAG IV SCH (14:00)
--- NOTE | 2021-05-08 15:14 | Discharge Summary ---
<LAURA FREGOSOLulú - Last Filed: 05/08/21 17:18> Providers - Providers Date of Admission: 05/07/21 02:31 Date of discharge: 05/08/21 Attending physician: MARGARET CHANG MD 05/07/21 Consult to Physician [CONS] Routine Comment: Consulting Provider: TILA GUARDADO Physician Instructions: Reason For Exam: CVA 05/07/21 03:26 Consult to Dietitian/Nutrition [CONS] Routine Physician Instructions: Reason For Exam: Reason for Consult: Diet education Occupational Therapy Evaluate and Treat [CONS] Routine Comment: Reason For Exam: Neuro deficits Physical Therapy Evaluation and Treat [CONS] Routine Comment: Reason For Exam: Neuro deficits 05/07/21 05:27 Consult to Physician [CONS] Routine Comment: Consulting Provider: JOSAFAT LANZA Physician Instructions: Reason For Exam: Critical care 05/07/21 08:58 Speech Therapy Evaluation and Treat [CONS] Routine Reason For Exam: cva, failed bedside swallow 05/08/21 07:22 Consult to Physician [CONS] Routine Comment: Consulting Provider: LEOBARDO DANIELS Physician Instructions: Reason For Exam: ULYSSES 05/08/21 09:04 Consult to Dietitian/Nutrition [CONS] Routine Physician Instructions: Reason For Exam: Reason for Consult: Write/Manage Tube Feeding 05/08/21 09:06 Consult to Dietitian/Nutrition [CONS] Stat Physician Instructions: Reason For Exam: Reason for Consult: Write/Manage Tube Feeding Primary care physician: BIOMETRY TEACHER Hospitalization Condition: Good Hospital course: 45-year-old female with history of hypertension and diabetes who is been medically noncompliant with medications for the last several weeks who is presenting with difficulty speaking and ataxia and left upper extremity with weakness to the left arm and left leg. Patient states that for the last 2 days she has had headache which she attributed to some sinus issues. States she has felt some congestion. Patient states today at approximately 2130 she started having weakness to her left arm and leg. States she had difficulty walking. Patient with slurred speech and states it is difficult to control her left arm. She denies any chest pain shortness of breath fevers or chills. Patient states she has quite a bit of nausea. In route patient blood pressure was 230 systolic. In the emergency room initial CT scan showed 2 focal areas of hypoattenuation within the left cerebral hemisphere are most consistent with infarct, though these areas appeared to be at least subacute in age recommend correlation with MRI #2 otherwise no acute intracranial abnormality no acute intracranial hemorrhage. Patient is seen and evaluated in the emergency room by telemetry neurology. No TPA given. On 05/08 patient has persistent hypoglycemia, started on scheduled lispro with titration of long-acting insulin. Patient's blood pressure is better controlled today with decreased consumption of home Coreg. Tachycardia is improved. Left foot x-ray and neck CT obtained due to complaints of pain. Patient care to be transferred to [facility]. NKDA Home meds per breana on pts phone Coreg 25 bid ASA Prasugrel 10 daily Humalog 70-30 10 U BID Mifedipine ER 90 mg daily Atorvastatin 80 mg hs HCTZ 25 daily Metformin 500 mg PO BID PMH DE 2019 DM Obese HTN HLD med non adherence LMP last week PCP Jaylen ; Pt is known as Leslie Quinones in [place] A/P NEURO CVA -05/06 CT head shows 2 focal areas of hypoattenuation within the left cerebral hemisphere are most consistent with infarct, though diffuse areas appear to be at least subacute in age, recommend correlation with MRI, arthritis no acute intracranial abnormality, no acute intracranial hemorrhage -05/07 2D echocardiogram shows normal-sized left ventricle, moderate concentric left ventricular hypertrophy, left ventricle systolic function normal, left ventricular ejection fraction within normal range, LVEF is 55 to 60%, left ventricular diastolic function is indeterminate, mildly dilated right ventricle, right ventricle systolic function is grossly normal, RVSP is 40 mmHg, trace TR, saline bubble contrast intravenous injection demonstrates PFO. 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 with no evidence of hemorrhage or mass -05/07 MRI neck shows no evidence of bifurcation stenosis -05/08 CT head shows left PICA territory infarct has not progressed, no hemorrhage, no hydrocephalus -Neuro consulted, appreciate recommendations -NIHSS score on admit in ER 4 -Patient with left sided weakness; pronator drift; weakness left leg; hoarse; dysphagia; alert and oriented but with slurred speech; ataxia (L side when ambulatory in ER) -Aspiration and seizure precautions -ST/PT/OT consulted; ST failed swallow eval (NGT placed on TF); PT/OT pending recommendations -PRN pain meds IV -[facility] installation specialist contacted for transfer however imaging done here was unable to be viewed despite being sent to [facility] several times -Asa/plavix/statin Swollen left tonsillar fossa leading to a mildly displacing the airway, enlarged left lobe of thyroid gland -05/08 CT neck shows swollen left tonsillar fossa in the oropharynx mildly displacing the airway, inflammatory changes in the tonsil, enlarged left lobe of thyroid gland, reactive lymph nodes on the left side level 2, level 3 and level 4, enlarged nodes at level 3 and 4 measuring more than 15 mm -ENT at [facility] aware -Started on Unasyn Left foot pain -05/08 foot x-ray shows no displaced fracture, no significant arthritis, no significant abnormality and soft tissue CV Hypertensive emergency - SBP 230 on arrival to ER; PFO on ECHO, ST (baseline unknown cause); hx DE; hyperlipidemia; elevated triglycerides ac HTN - on coreg 25 bid and nifedipine ER 90 daily at home -05/07 2D echocardiogram shows normal-sized left ventricle, moderate concentric left ventricular hypertrophy, left ventricle systolic function normal, left ventricular ejection fraction within normal range, LVEF is 55 to 60%, left ventricular diastolic function is indeterminate, mildly dilated right ventricle, right ventricle systolic function is grossly normal, RVSP is 40 mmHg, trace TR, saline bubble contrast intravenous injection demonstrates PFO. -trop neg/ CK neg -s/p cardene overnight but very labile with tachycardia -Pt reports her HR is always high-- to 130's post MRI (note on coreg and nifedipine ER 90 daily at home) - restarted Coreg RESP-NAD NC PRN pulm hygiene aspiration precautions FEN/ GI Acute Kidney Injury -05/08 Cr/BUN 2.5/27 -05/08 FeNa calculated at 0.34% indicating prerenal azotemia -Renal us pending -Nephrology consulted, appreciate recommendations -Check urine output -Daily weights -Avoid nephrotoxic medications -Renally dose medications -IVF HEME- sp CVA VTE SCD trend CBC no bleeding on exam SQH VTE ID Leukocytosis -Trend CBC Possible tonsillar abscess -Started on Unasyn ENDO hx DM -SSI, long acting linsulin -05/07 hemoglobin A1c 13.3 -SSI, Lantus 20 units subcu every morning, lispro 10 units every 6 -NGT on TF Obesity -Encourage lifestyle modifications upon discharge DVT/GI prophylaxis: PPI, heparin subcu, SCDs to bilateral resolved in bed Lines: PIV Dispo: transfer to [facility] Disposition: DC/[place]-70 ANOTHER TYPE [facility]THCARE Final Discharge Diagnosis (Prints w/discharge instructions): CVA, HTN emergency, Swollen Left tonisillar fossa, mildy displaced ariway, thyriod enlargement, medical noncompliance Time spent for discharge: 45 Core Measure Documentation - Palliative Care Palliative Care/ Comfort Measures: Not Applicable - Core Measures Any of the following diagnoses?: stroke - Stroke Discharge Requirements Statin for LDL = or >70 mg/dl on DC: Yes Anticoag for atrial fib/atrial flutter: Not Applicable Antithrombotic for ischemic stroke: Yes Exam - Constitutional Vitals: Temp Pulse Resp BP Pulse Ox 99 F 105 H 12 155/102 90 05/08/21 12:00 05/08/21 14:00 05/08/21 14:00 05/08/21 14:00 05/08/21 14:00 General appearance: Present: well-nourished, obese - EENT Eyes: Present: PERRL, EOM intact ENT: hearing intact, clear oral mucosa, dentition normal - Neck Neck: Present: other (left sided neck pain) - Respiratory Respiratory effort: normal Respiratory: bilateral: CTA, diminished - Cardiovascular Rhythm: regular Heart Sounds: Present: S1 & S2. Absent: systolic murmur, diastolic murmur - Extremities Extremities: no ischemia, pulses intact, pulses symmetrical, No edema, normal temperature, normal color, Full ROM Peripheral Pulses: within normal limits - Abdominal General gastrointestinal: Present: soft, non-tender, non-distended, normal bowel sounds - Integumentary Integumentary: Present: clear, warm, dry - Musculoskeletal Musculoskeletal: left sided weakness - Psychiatric Psychiatric: appropriate mood/affect, cooperative - Neurologic Neurologic: CNII-XII intact, focal deficits (left sided pronator drift, left sided mild facial droop), moves all extremities - Allied Health Allied health notes reviewed: nursing, PT, ST, OT, RT, social work Plan Activity: advance as tolerated Diet: per dietitian instruction Special Instructions: record daily weights, record daily BP diary, record blood sugar diary Additional Instructions: care is being transferred to [facility], accepting physician Dr. Bustamante Follow up with: CARLOS LAGUERRE MD [Primary Care Provider] - 7 Days TILA GUARDADO MD [Staff Physician] - 7 Days <MRAGARET CHANG - Last Filed: 05/09/21 11:46> Providers - Providers Date of Admission: 05/07/21 02:31 Attending physician: MARGARET CHANG MD 05/07/21 Consult to Physician [CONS] Routine Comment: Consulting Provider: TILA GUARDADO Physician Instructions: Reason For Exam: CVA 05/07/21 03:26 Consult to Dietitian/Nutrition [CONS] Routine Physician Instructions: Reason For Exam: Reason for Consult: Diet education Occupational Therapy Evaluate and Treat [CONS] Routine Comment: Reason For Exam: Neuro deficits Physical Therapy Evaluation and Treat [CONS] Routine Comment: Reason For Exam: Neuro deficits 05/07/21 05:27 Consult to Physician [CONS] Routine Comment: Consulting Provider: JOSAFAT LANZA Physician Instructions: Reason For Exam: Critical care 05/07/21 08:58 Speech Therapy Evaluation and Treat [CONS] Routine Reason For Exam: cva, failed bedside swallow 05/08/21 07:22 Consult to Physician [CONS] Routine Comment: Consulting Provider: LEOBARDO DANIELS Physician Instructions: Reason For Exam: ULYSSES 05/08/21 09:04 Consult to Dietitian/Nutrition [CONS] Routine Physician Instructions: Reason For Exam: Reason for Consult: Write/Manage Tube Feeding 05/08/21 09:06 Consult to Dietitian/Nutrition [CONS] Stat Physician Instructions: Reason For Exam: Reason for Consult: Write/Manage Tube Feeding Primary care physician: BIOMETRY TEACHER Hospitalization Hospital course: Agree with assessment and plan as outlined by nurse practitioner as above, work with critical care to get patient placed at [facility] due to tonsillar abscess. ENT was contacted, accepting physician noted. Patient was stable for discharge for continued work-up for throat abscess and stroke. Exam - Constitutional Vitals: Temp Pulse Resp BP Pulse Ox 98.8 F 97 H 15 137/92 92 05/08/21 16:00 05/08/21 18:00 05/08/21 18:00 05/08/21 18:00 05/08/21 18:00
--- NOTE | 2021-05-08 15:49 | Consultation ---
History of Present Illness - Reason for Consult Consult date: 05/08/21 acute renal failure - History of Present Illness This is a 45 year old female who presented to the hospital for a chief complaint of weakness to left side and change in speech. Patient has been diagnosed with CVA. Neck CT showed swollen left tonsillar fossa in the oropharynx midly displacing the airway. Enlarged left thyroid lobe and reactive lymph nodes on left side. Plans are being made for patient to be transferred to [facility]. Pertinent labs revealed a serum creatinine of 1.1 on admission that hafsa to 2.5 today. Baseline serum creatinine unknown. Patient has history of Hypertension and Diabetes Mellitus. Patient is awake and alert and at bedside. We are being consulted for management of this patient's Acute Renal Failure. Past History Past Medical History: diabetes, hypertension Medications and Allergies Allergies Allergy/AdvReac Type Severity Reaction Status Date / Time No Known Allergies Allergy Unverified 05/06/21 22:36 Home Medications Medication Instructions Recorded Confirmed Last Taken Type Aspirin [Aspirin BABY CHEW TAB] 81 mg PO QDAY tab.chew 05/08/21 Unknown Rx AtorvaSTATin [Lipitor] 40 mg PO QHS tablet 05/08/21 Unknown Rx Clopidogrel [Plavix] 75 mg PO QDAY tablet 05/08/21 Unknown Rx HYDROmorphone [Dilaudid] 0.25 mg IV Q3H PRN syringe 05/08/21 Unknown Rx Insulin Glargine [Lantus VIAL] 20 units SUB-Q QAMDIAB units 05/08/21 Unknown Rx Lipase/Protease/Amylase [Pancreaze 1 each FEEDTUBE PRN PRN capsule 05/08/[address] 10,500 Unit] Lispro Insulin [HumaLOG] 0 unit SUB-Q Q6HR units 05/08/21 Unknown Rx Lispro Insulin [HumaLOG] 10 unit SUB-Q Q6HR units 05/08/21 Unknown Rx Simple Syrup 15 ml FEEDTUBE PRN PRN oral.liqd 05/08/21 Unknown Rx Simple Syrup 30 ml FEEDTUBE PRN PRN oral.liqd 05/08/21 Unknown Rx Sodium Bicarbonate 325 mg FEEDTUBE PRN PRN tablet 05/08/21 Unknown Rx Sodium Chloride 0.9% Int [Sodium 10 ml IV PRN PRN syringe 05/08/21 Unknown Rx Chloride Flush Syringe 10 ml] carvediloL [Coreg] 25 mg PO BID tablet 05/08/21 Unknown Rx hydrALAZINE [Apresoline INJ] 10 mg IV Q6H PRN vial 05/08/21 Unknown Rx Active Meds: Active Medications Lipase/Protease/Amylase (Lipase 10,500/Protease 25,000/Amylase 43,750 (Units) Dr Rodriguez) 1 each FEEDTUBE PRN PRN PRN Reason: For Clogged Feeding Tube Aspirin (Aspirin 81 Mg Tab Chew) 81 mg PO QDAY REPLACED BY [facility] Last Admin: 05/08/21 09:04 Dose: 81 mg Documented by: Atorvastatin Calcium (Atorvastatin 40 Mg Tab) 40 mg PO QHS REPLACED BY [facility] Carvedilol (Carvedilol 25 Mg Tab) 25 mg PO BID REPLACED BY [facility] Last Admin: 05/08/21 09:03 Dose: 25 mg Documented by: Clopidogrel Bisulfate (Clopidogrel 75 Mg Tab) 75 mg PO QDAY REPLACED BY [facility] Stop: 05/28/21 09:59 Last Admin: 05/08/21 09:04 Dose: 75 mg Documented by: Dextrose (Dextrose 50% In Water (25gm) 50 Ml Syringe) 0 ml IV Q30MIN PRN; Protocol PRN Reason: Hypoglycemia Famotidine (Famotidine 20 Mg/2 Ml Inj) 20 mg IV DAILY REPLACED BY [facility] Last Admin: 05/08/21 09:05 Dose: 20 mg Documented by: Heparin Sodium (Porcine) (Heparin 5,000 Unit/1 Ml Vial) 5,000 unit SUB-Q Q8HR REPLACED BY [facility] Last Admin: 05/08/21 13:48 Dose: 5,000 unit Documented by: Hydralazine HCl (Hydralazine 20 Mg/1 Ml Inj) 10 mg IV Q6H PRN PRN Reason: Blood Pressure Last Admin: 05/08/21 09:05 Dose: 10 mg Documented by: Hydromorphone HCl (Hydromorphone 1 Mg/1 Ml Inj) 0.25 mg IV Q3H PRN PRN Reason: Pain , Severe (7-10) Last Admin: 05/08/21 13:53 Dose: 0.25 mg Documented by: Sodium Chloride (Nacl 0.9% 1000 Ml) 1,000 mls @ 100 mls/hr IV DIRECT REPLACED BY [facility] Last Admin: 05/08/21 09:15 Dose: 100 mls/hr Documented by: Ampicillin Sodium/Sulbactam Sodium (Unasyn/Ns 1.5 Gm/50 Ml) 1.5 gm in 50 mls @ 100 mls/hr IV Q6H REPLACED BY [facility]; Protocol Insulin Glargine (Insulin Glargine 100 Units/Ml) 20 units SUB-Q QAMDIAB REPLACED BY [facility] Last Admin: 05/08/21 09:04 Dose: 20 units Documented by: Insulin Human Lispro (Insulin Lispro 100 Unit/Ml) 0 unit SUB-Q Q6HR REPLACED BY [facility]; Protocol Last Admin: 05/08/21 13:48 Dose: 8 unit Documented by: Insulin Human Lispro (Insulin Lispro 100 Unit/Ml) 10 unit SUB-Q Q6HR REPLACED BY [facility] Last Admin: 05/08/21 13:48 Dose: 10 unit Documented by: Insulin Human Regular (Insulin Regular, Human 100 Units/1 Ml) 15 units SUB-Q ONCE ONE Stop: 05/08/21 19:31 Labetalol HCl (Labetalol 20 Mg/4 Ml Inj) 10 mg IV Q6HR PRN PRN Reason: Hypertension Lidocaine (Lidocaine 5% 1 Each Patch) 1 each TD QDAY REPLACED BY [facility] Last Admin: 05/08/21 11:19 Dose: 1 each Documented by: Simple Syrup (Simple Syrup 15 Ml) 15 ml FEEDTUBE PRN PRN PRN Reason: Hypoglycemia Simple Syrup (Simple Syrup 15 Ml) 30 ml FEEDTUBE PRN PRN PRN Reason: Hypoglycemia Sodium Bicarbonate (Sodium Bicarbonate 325 Mg Tab) 325 mg FEEDTUBE PRN PRN PRN Reason: For Clogged Feeding Tube Sodium Chloride (Sodium Chloride 0.9% 10 Ml Flush Syringe) 10 ml IV PRN PRN PRN Reason: LINE FLUSH Review of Systems Constitutional: fatigue, weakness, no weight loss, no weight gain, no fever, no chills Ears, nose, mouth and throat: no ear pain, no ear discharge, no tinnitis, no decreased hearing, no nose pain, no nasal congestion, no nasal discharge Breasts: no normal, no change in shape, no swelling Cardiovascular: no chest pain, no orthopnea, no palpitations, no rapid/irregular heart beat, no edema, no syncope, no lightheadedness, no shortness of breath Respiratory: no cough with sputum, no excessive sputum, no hemoptysis, no shortness of breath, no dyspnea on exertion Gastrointestinal: no nausea, no vomiting, no diarrhea, no constipation, no change in bowel habits, no hematemesis Genitourinary Female: no dysmenorrhea, no pelvic pain, no flank pain, no menorrh agia, no dysuria, no urinary frequency, no urgency Rectal: no pain, no incontinence, no bleeding Musculoskeletal: other (Left side weakness) Integumentary: no rash, no pruritis, no redness, no sores, no wounds, no jaundice Neurological: weakness, numbness, change in speech Psychiatric: no memory loss, no change in sleep habits, no sleep disturbances, no insomnia, no hypersomnia, no change in appetite Endocrine: no cold intolerance, no heat intolerance, no polyphagia, no excessive thirst, no polydipsia, no polyuria, no nocturia Exam - Vital Signs Vital signs: Vital Signs Pulse Resp Pulse Ox 84 15 98 05/06/21 23:07 05/06/21 23:07 05/06/21 23:07 - General Appearance General appearance: well-developed, appears stated age, fatigue EENT: ATNC, PERRL, hearing intact Neck: Present: neck supple, trachea midline Respiratory: Decreased Breath Sounds Heart: S1S2 Gastrointestinal: Present: normoactive bowel sounds, other (NG tube intact) Integumentary: warm and dry Neurologic: alert and oriented x3 Musculoskeletal: Present: other (No edema) Results - Lab Results 05/08/21 05:21 05/08/21 05:21 Most recent lab results Calcium 9.5 mg/dL (8.4-10.2) 05/08/21 05:21 Assessment and Plan Assessment: CVA Acute Renal Failure Hypertension Diabetes Mellitus Leukocytosis Anemia Enlarged left thyroid lobe Reactive lymph nodes on left side Swollen left tonsillar fossa Plan: Renal labs reviewed. Serum creatinine 2.5 today, admission serum creatinine was 1.1 Baseline serum creatinine unknown Obtain renal ultrasound Obtain urine lytes, protein and eosinophils On NS@100 ml/hr Obtain daily weights Monitor I/O's daily Avoid nephrotoxic agents Renally dose medications Monitor renal function closely Neck CT-swollen left tonsillar fossa in the oropharynx midly displacing the air way. Enlarged left thyroid lobe and reactive lymph nodes on left side. Plans are being made for patient to be transferred to [facility] once they have a bed available
--- NOTE | 2021-05-08 16:36 | Progress Note ---
<LAURA FREGOSO - Last Filed: 05/08/21 17:10> Assessment and Plan Assessment and plan: This is a 45-year-old female with hypertension and diabetes who is being admitted for CVA NKDA Home meds per breana on pts phone Coreg 25 bid ASA Prasugrel 10 daily Humalog 70-30 10 U BID Mifedipine ER 90 mg daily Atorvastatin 80 mg hs HCTZ 25 daily Metformin 500 mg PO BID PMH CT 2019 DM Obese HTN HLD med non adherence LMP last week PCP Meredith ; Pt is known as Leslie Quinones in [facility] NEURO CVA -05/06 CT head shows 2 focal areas of hypoattenuation within the left cerebral hemisphere are most consistent with infarct, though diffuse areas appear to be at least subacute in age, recommend correlation with MRI, arthritis no acute intracranial abnormality, no acute intracranial hemorrhage -05/07 2D echocardiogram shows normal-sized left ventricle, moderate concentric left ventricular hypertrophy, left ventricle systolic function normal, left ventricular ejection fraction within normal range, LVEF is 55 to 60%, left ventricular diastolic function is indeterminate, mildly dilated right ventricle, right ventricle systolic function is grossly normal, RVSP is 40 mmHg, trace TR, saline bubble contrast intravenous injection demonstrates PFO. 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 with no evidence of hemorrhage or mass -05/07 MRI neck shows no evidence of bifurcation stenosis -05/08 CT head shows left PICA territory infarct has not progressed, no hemorrhage, no hydrocephalus -Neuro consulted, appreciate recommendations -NIHSS score on admit in ER 4 -Patient with left sided weakness; pronator drift; weakness left leg; hoarse; dysphagia; alert and oriented but with slurred speech; ataxia (L side when ambulatory in ER) -Aspiration and seizure precautions -ST/PT/OT consulted; ST failed swallow eval (NGT placed on TF); PT/OT pending recommendations -PRN pain meds IV -[facility] [place] neuro registration rep contacted for transfer however imaging done here was unable to be viewed despite being sent to [facility] several times -Asa/plavix/statin Swollen left tonsillar fossa leading to a mildly displacing the airway, enlarged left lobe of thyroid gland -05/08 CT neck shows swollen left tonsillar fossa in the oropharynx mildly displacing the airway, inflammatory changes in the tonsil, enlarged left lobe of thyroid gland, reactive lymph nodes on the left side level 2, level 3 and level 4, enlarged nodes at level 3 and 4 measuring more than 15 mm -ENT at [facility] aware -Started on Unasyn Left foot pain -05/08 foot x-ray shows no displaced fracture, no significant arthritis, no significant abnormality and soft tissue CV Hypertensive emergency - SBP 230 on arrival to ER; PFO on ECHO, ST (baseline unknown cause); hx CT; hyperlipidemia; elevated triglycerides ac HTN - on coreg 25 bid and nifedipine ER 90 daily at home -05/07 2D echocardiogram shows normal-sized left ventricle, moderate concentric left ventricular hypertrophy, left ventricle systolic function normal, left ventricular ejection fraction within normal range, LVEF is 55 to 60%, left ventricular diastolic function is indeterminate, mildly dilated right ventricle, right ventricle systolic function is grossly normal, RVSP is 40 mmHg, trace TR, saline bubble contrast intravenous injection demonstrates PFO. -trop neg/ CK neg -s/p cardene overnight but very labile with tachycardia -Pt reports her HR is always high-- to 130's post MRI (note on coreg and nifedipine ER 90 daily at home) - restarted Coreg RESP-NAD NC PRN pulm hygiene aspiration precautions FEN/ GI Acute Kidney Injury -05/08 Cr/BUN 2.5/ -urine lytes pending -Nephrology consulted, appreciate recommendations -Check urine output -Daily weights -Avoid nephrotoxic medications -Renally dose medications -IVF HEME- sp CVA VTE SCD trend CBC no bleeding on exam SQH VTE ID Leukocytosis -Trend CBC Possible tonsillar abscess -Started on Unasyn ENDO hx DM -SSI, long acting linsulin -05/07 hemoglobin A1c 13.3 -SSI, Lantus 20 units subcu every morning, lispro 10 units every 6 -NGT on TF Obesity -Encourage lifestyle modifications upon discharge DVT/GI prophylaxis: PPI, heparin subcu, SCDs to bilateral resolved in bed Lines: PIV Dispo: transfer to [place]; icu for now History Interval history: 45-year-old female with history of hypertension and diabetes who is been medically noncompliant with medications for the last several weeks who is presenting with difficulty speaking and ataxia and left upper extremity with weakness to the left arm and left leg. Patient states that for the last 2 days she has had headache which she attributed to some sinus issues. States she has felt some congestion. Patient states 05/06 at approximately 2130 she started having weakness to her left arm and leg. States she had difficulty walking. Patient with slurred speech and states it is difficult to control her left arm. She denies any chest pain shortness of breath fevers or chills. Patient states she has quite a bit of nausea. In route patient blood pressure was 230 systolic. In the emergency room initial CT scan showed 2 focal areas of hypoattenuation within the left cerebral hemisphere are most consistent with infarct, though these areas appeared to be at least subacute in age recommend correlation with MRI #2 otherwise no acute intracranial abnormality no acute intracranial hemorrhage. Patient is seen and evaluated in the emergency room by telemetry neurology. No TPA given. 05/08: patient has persistent hypoglycemia, started on scheduled lispro with titration of long-acting insulin. Patient's blood pressure is better controlled today with decreased consumption of home Coreg. Tachycardia is improved. Left foot x-ray and neck CT obtained due to complaints of pain. Patient care to be transferred to [facility]. 05/09: c/o neck pain and foot pain, XR of foot with no acute abnormality. CT of neck with enlarged thyroid, swollen left tonsillar fossa, mildly displaced airway. Started on Unasyn. Insulin uptitrated. Attempting to transfer to [facility]. Hospitalist Physical - Constitutional Vitals: Temp Pulse Resp BP Pulse Ox 98.8 F 105 H 12 155/102 90 05/08/21 16:00 05/08/21 14:00 05/08/21 14:00 05/08/21 14:00 05/08/21 14:00 General appearance: Present: well-nourished, obese HEART Score - HEART Score EKG: Normal Age: < 45 Risk factors: 1-2 risk factors Troponin: Troponin T 0.014 ng/mL (0.00-0.029) 05/07/21 11:06 Troponin: < normal limit - Critical Actions Critical Actions: 0-3 pts:0.9-1.7%risk of adverse cardiac event.Candidate for discharge Results - Labs CBC & Chem 7: 05/08/21 05:21 05/08/21 05:21 Labs: Laboratory Last Values WBC 23.0 K/mm3 (4.5-11.0) H 05/08/21 05:21 RBC 4.79 M/mm3 (3.65-5.03) 05/08/21 05:21 Hgb 9.9 gm/dl (10.1-14.3) L 05/08/21 05:21 Hct 31.9 % (30.3-42.9) 05/08/21 05:21 MCV 67 fl (79-97) L 05/08/21 05:21 MCH 21 pg (28-32) L 05/08/21 05:21 MCHC 31 % (30-34) 05/08/21 05:21 RDW 19.3 % (13.2-15.2) H 05/08/21 05:21 Plt Count 445 K/mm3 (140-440) H 05/08/21 05:21 Lymph % (Auto) 14.9 % (13.4-35.0) 05/06/21 23:13 Toole % (Auto) 5.6 % (0.0-7.3) 05/06/21 23:13 Eos % (Auto) 0.9 % (0.0-4.3) 05/06/21 23:13 Baso % (Auto) 0.9 % (0.0-1.8) 05/06/21 23:13 Lymph # (Auto) 2.1 K/mm3 (1.2-5.4) 05/06/21 23:13 Toole # (Auto) 0.8 K/mm3 (0.0-0.8) 05/06/21 23:13 Eos # (Auto) 0.1 K/mm3 (0.0-0.4) 05/06/21 23:13 Baso # (Auto) 0.1 K/mm3 (0.0-0.1) 05/06/21 23:13 Seg Neutrophils % 77.7 % (40.0-70.0) H 05/06/21 23:13 Seg Neutrophils # 10.8 K/mm3 (1.8-7.7) H 05/06/21 23:13 PT 12.0 Sec. (12.2-14.9) L 05/06/21 23:13 INR 0.84 (0.87-1.13) L 05/06/21 23:13 APTT 28.1 Sec. (24.2-36.6) 05/06/21 23:13 Thrombin Time 17.0 Sec. (15.1-19.6) 05/06/21 23:13 Sodium 140 mmol/L (137-145) 05/08/21 05:21 Potassium 3.6 mmol/L (3.6-5.0) 05/08/21 05:21 Chloride 100.8 mmol/L (98-107) 05/08/21 05:21 Carbon Dioxide 23 mmol/L (22-30) 05/08/21 05:21 Anion Gap 20 mmol/L 05/08/21 05:21 BUN 27 mg/dL (7-17) H 05/08/21 05:21 Creatinine 2.5 mg/dL (0.6-1.2) H D 05/08/21 05:21 Estimated GFR 25 ml/min 05/08/21 05:21 BUN/Creatinine Ratio 11 % 05/08/21 05:21 Glucose 410 mg/dL (65-100) H 05/08/21 05:21 POC Glucose 264 mg/dL (70-105) H 05/08/21 11:48 Hemoglobin A1c 13.3 % (4-6) H 05/07/21 11:06 Calcium 9.5 mg/dL (8.4-10.2) 05/08/21 05:21 Total Bilirubin 0.40 mg/dL (0.1-1.2) 05/06/21 23:13 AST 19 units/L (5-40) 05/06/21 23:13 ALT 15 units/L (7-56) 05/06/21 23:13 Alkaline Phosphatase 104 units/L (35-129) 05/06/21 23:13 Total Creatine Kinase 66 units/L (30-135) 05/06/21 23:13 CK-MB (CK-2) 1.8 ng/mL (0.0-4.0) 05/06/21 23:13 CK-MB (CK-2) Rel Index 2.7 (0-4) 05/06/21 23:13 Troponin T 0.014 ng/mL (0.00-0.029) 05/07/21 11:06 Total Protein 8.9 g/dL (6.3-8.2) H 05/06/21 23:13 Albumin 4.4 g/dL (3.9-5) 05/06/21 23:13 Albumin/Globulin Ratio 1.0 % 05/06/21 23:13 Triglycerides 264 mg/dL (2-149) H 05/07/21 11:06 Cholesterol 202 mg/dL (50-199) H 05/07/21 11:06 LDL Cholesterol Direct 122 mg/dL (50-130) 05/07/21 11:06 HDL Cholesterol 52 mg/dL (40-59) 05/07/21 11:06 Cholesterol/HDL Ratio 3.88 % 05/07/21 11:06 Plasma/Serum Alcohol < 0.01 % (0-0.07) 05/06/21 23:13 Lind/IV: Voiding Method External Female Catheter Active Medications - Current Medications Current Medications: Generic Name Dose Route Start Last Admin Trade Name Freq PRN Reason Stop Dose Admin Lipase/Protease/Amylase 1 each 05/08/21 10:00 Lipase 10,500/Protease 25,000/Amylase 43,750 (Units) Dr Rodriguez FEEDTUBE PRN PRN For Clogged Feeding Tube Aspirin 81 mg 05/07/21 10:00 05/08/21 09:04 Aspirin 81 Mg Tab Chew PO 81 mg QDAY NORMAN Administration Atorvastatin Calcium 40 mg 05/08/21 22:00 Atorvastatin 40 Mg Tab PO QHS NORMAN Carvedilol 25 mg 05/08/21 10:00 05/08/21 09:03 Carvedilol 25 Mg Tab PO 25 mg BID NORMAN Administration Clopidogrel Bisulfate 75 mg 05/07/21 10:00 05/08/21 09:04 Clopidogrel 75 Mg Tab PO 05/28/21 09:59 75 mg QDAY NORMAN Administration Dextrose 0 ml 05/07/21 03:26 Dextrose 50% In Water (25gm) 50 Ml Syringe IV Q30MIN PRN Hypoglycemia Protocol Famotidine 20 mg 05/07/21 10:00 05/08/21 09:05 Famotidine 20 Mg/2 Ml Inj IV 20 mg DAILY NORMAN Administration Heparin Sodium (Porcine) 5,000 unit 05/07/21 06:00 05/08/21 13:48 Heparin 5,000 Unit/1 Ml Vial SUB-Q 5,000 unit Q8HR NORMAN Administration Hydralazine HCl 10 mg 05/07/21 03:38 05/08/21 09:05 Hydralazine 20 Mg/1 Ml Inj IV 10 mg Q6H PRN Administration Blood Pressure Hydromorphone HCl 0.25 mg 05/07/21 13:34 05/08/21 13:53 Hydromorphone 1 Mg/1 Ml Inj IV 0.25 mg Q3H PRN Administration Pain , Severe (7-10) Sodium Chloride 1,000 mls @ 100 mls/hr 05/08/21 08:00 05/08/21 09:15 Nacl 0.9% 1000 Ml IV 100 mls/hr DIRECT NORMAN Administration Ampicillin Sodium/Sulbactam Sodium 1.5 gm in 50 mls @ 100 mls/hr 05/08/21 14:00 Unasyn/Ns 1.5 Gm/50 Ml IV Q6H NORMAN Protocol Insulin Glargine 20 units 05/08/21 08:00 05/08/21 09:04 Insulin Glargine 100 Units/Ml SUB-Q 20 units QAMDIAB NORMAN Administration Insulin Human Lispro 0 unit 05/07/21 12:00 05/08/21 13:48 Insulin Lispro 100 Unit/Ml SUB-Q 8 unit Q6HR NORMAN Administration Protocol Insulin Human Lispro 10 unit 05/08/21 08:00 05/08/21 13:48 Insulin Lispro 100 Unit/Ml SUB-Q 10 unit Q6HR NORMAN Administration Insulin Human Regular 15 units 05/08/21 19:30 Insulin Regular, Human 100 Units/1 Ml SUB-Q 05/08/21 19:31 ONCE ONE Labetalol HCl 10 mg 05/07/21 11:39 Labetalol 20 Mg/4 Ml Inj IV Q6HR PRN Hypertension Lidocaine 1 each 05/08/21 10:00 05/08/21 11:19 Lidocaine 5% 1 Each Patch TD 1 each QDAY NORMAN Administration Simple Syrup 15 ml 05/08/21 10:00 Simple Syrup 15 Ml FEEDTUBE PRN PRN Hypoglycemia Simple Syrup 30 ml 05/08/21 10:00 Simple Syrup 15 Ml FEEDTUBE PRN PRN Hypoglycemia Sodium Bicarbonate 325 mg 05/08/21 10:00 Sodium Bicarbonate 325 Mg Tab FEEDTUBE PRN PRN For Clogged Feeding Tube Sodium Chloride 10 ml 05/07/21 03:26 Sodium Chloride 0.9% 10 Ml Flush Syringe IV PRN PRN LINE FLUSH Nutrition/Malnutrition Assess - Dietary Evaluation Nutrition/Malnutrition Findings: Nutrition Notes Start: 05/07/21 14:14 Freq: Status: Active Protocol: Document 05/08/21 09:44 (Rec: 05/08/21 09:49 [email or web address]) Nutrition Notes Initial or Follow up Assessment Current Diagnosis Diabetes,Heart Failure,Stroke Other Pertinent Diagnosis medial noncompliance Current Diet NPO Labs/Tests BG 410 Pertinent Medications NS at 100 ml/hr Height 5 ft 5 in Weight 98.2 kg [place] Body Weight (kg) 56.81 BMI 36.0 Weight Status Obese Subjective/Other Information MD order for TF. Pt has failed [facility] eval and will need therapy. DHT in place. Burn Absent Trauma Absent Difficulty In Swallowing Current % PO Negligible Minimum of two criteria No physical signs of malnutrition #2 Nutrition Diagnosis Swallowing difficulty Etiology CVA As Evidenced by Signs and Symptoms pt with DHT due to failed swallow eval #1 Nutrition Diagnosis Limited adherence to nutrition -related recommendations Diagnosis Progress(for reassessment Continues documentation) Is patient on ventilator? No Is Patient Ambulatory and/or Out of Bed No REE-([facility]-confined to bed) 1968.396 Kcal/Kg value to use for calculation 14 Approximate Energy Requirements Using 1375 kcal/Kg Calculation Used for Recommendations Kcal/kg Additional Notes Protein: (0.8-1g/kg AdjBW: 77. 5kg) 62-78g Fluid: 1 ml/kcal or per MD Nutrition Intervention Change Diet Order: Start TF Nutrition Support: Glucerna 1.2 at 50 ml/hr Flush 100 ml q4h Kcal 1,440 Protein (gm) 72 Fluid (mL) 966 Goal #1 Meet at least 75% of protein and energy needs via TF Anticipated Discharge Needs: Unable to determine at this time Follow-Up By: 05/10/21 Additional Comments FU for TF start and tolerance <MARGARET CHANG - Last Filed: 05/09/21 11:48> Assessment and Plan Assessment and plan: Agree with assessment and plan as outlined by nurse practitioner as above, I personally examined the patient, updated the as to the plan of care. Patient had a CT of the neck which showed tonsillar abscess, patient was started on Unasyn, we will attempt to transfer the patient to [facility] where ENT will evaluate the patient. No airway compromise, patient is stable. As far as transferring the patient to a neuro ICU, neurology has reviewed the images, states there is no need for continued work-up or intervention by neuro adiologist/interventionalist Hospitalist Physical - Constitutional Vitals: Temp Pulse Resp BP Pulse Ox 98.8 F 97 H 15 137/92 92 05/08/21 16:00 05/08/21 18:00 05/08/21 18:00 05/08/21 18:00 05/08/21 18:00 HEART Score - HEART Score Troponin: Troponin T 0.014 ng/mL (0.00-0.029) 05/07/21 11:06 Results - Labs CBC & Chem 7: 05/08/21 05:21 05/08/21 05:21 Labs: Laboratory Last Values WBC 23.0 K/mm3 (4.5-11.0) H 05/08/21 05:21 RBC 4.79 M/mm3 (3.65-5.03) 05/08/21 05:21 Hgb 9.9 gm/dl (10.1-14.3) L 05/08/21 05:21 Hct 31.9 % (30.3-42.9) 05/08/21 05:21 MCV 67 fl (79-97) L 05/08/21 05:21 MCH 21 pg (28-32) L 05/08/21 05:21 MCHC 31 % (30-34) 05/08/21 05:21 RDW 19.3 % (13.2-15.2) H 05/08/21 05:21 Plt Count 445 K/mm3 (140-440) H 05/08/21 05:21 Lymph % (Auto) 14.9 % (13.4-35.0) 05/06/21 23:13 Toole % (Auto) 5.6 % (0.0-7.3) 05/06/21 23:13 Eos % (Auto) 0.9 % (0.0-4.3) 05/06/21 23:13 Baso % (Auto) 0.9 % (0.0-1.8) 05/06/21 23:13 Lymph # (Auto) 2.1 K/mm3 (1.2-5.4) 05/06/21 23:13 [place]ole # (Auto) 0.8 K/mm3 (0.0-0.8) 05/06/21 23:13 Eos # (Auto) 0.1 K/mm3 (0.0-0.4) 05/06/21 23:13 Baso # (Auto) 0.1 K/mm3 (0.0-0.1) 05/06/21 23:13 Seg Neutrophils % 77.7 % (40.0-70.0) H 05/06/21 23:13 Seg Neutrophils # 10.8 K/mm3 (1.8-7.7) H 05/06/21 23:13 PT 12.0 Sec. (12.2-14.9) L 05/06/21 23:13 INR 0.84 (0.87-1.13) L 05/06/21 23:13 APTT 28.1 Sec. (24.2-36.6) 05/06/21 23:13 Thrombin Time 17.0 Sec. (15.1-19.6) 05/06/21 23:13 Sodium 140 mmol/L (137-145) 05/08/21 05:21 Potassium 3.6 mmol/L (3.6-5.0) 05/08/21 05:21 Chloride 100.8 mmol/L (98-107) 05/08/21 05:21 Carbon Dioxide 23 mmol/L (22-30) 05/08/21 05:21 Anion Gap 20 mmol/L 05/08/21 05:21 BUN 27 mg/dL (7-17) H 05/08/21 05:21 Creatinine 2.5 mg/dL (0.6-1.2) H D 05/08/21 05:21 Estimated GFR 25 ml/min 05/08/21 05:21 BUN/Creatinine Ratio 11 % 05/08/21 05:21 Glucose 410 mg/dL (65-100) H 05/08/21 05:21 POC Glucose 169 mg/dL (70-105) H 05/08/21 18:13 Hemoglobin A1c 13.3 % (4-6) H 05/07/21 11:06 Calcium 9.5 mg/dL (8.4-10.2) 05/08/21 05:21 Total Bilirubin 0.40 mg/dL (0.1-1.2) 05/06/21 23:13 AST 19 units/L (5-40) 05/06/21 23:13 ALT 15 units/L (7-56) 05/06/21 23:13 Alkaline Phosphatase 104 units/L (35-129) 05/06/21 23:13 Total Creatine Kinase 66 units/L (30-135) 05/06/21 23:13 CK-MB (CK-2) 1.8 ng/mL (0.0-4.0) 05/06/21 23:13 CK-MB (CK-2) Rel Index 2.7 (0-4) 05/06/21 23:13 Troponin T 0.014 ng/mL (0.00-0.029) 05/07/21 11:06 Total Protein 8.9 g/dL (6.3-8.2) H 05/06/21 23:13 Albumin 4.4 g/dL (3.9-5) 05/06/21 23:13 Albumin/Globulin Ratio 1.0 % 05/06/21 23:13 Triglycerides 264 mg/dL (2-149) H 05/07/21 11:06 Cholesterol 202 mg/dL (50-199) H 05/07/21 11:06 LDL Cholesterol Direct 122 mg/dL (50-130) 05/07/21 11:06 HDL Cholesterol 52 mg/dL (40-59) 05/07/21 11:06 Cholesterol/HDL Ratio 3.88 % 05/07/21 11:06 Urine Eosinophils None seen (None Seen) 05/08/21 14:40 Urine Creatinine 165.3 mg/dL (0.1-20.0) H 05/08/21 16:17 Protein/Creatinin Ratio 0.87 05/08/21 16:17 Urine Sodium 32 mmol/L 05/08/21 14:40 Urine Total Protein 144 mg/dL (5-11.8) H 05/08/21 16:17 Plasma/Serum Alcohol < 0.01 % (0-0.07) 05/06/21 23:13 Lind/IV: Voiding Method External Female Catheter Nutrition/Malnutrition Assess - Dietary Evaluation Nutrition/Malnutrition Findings: Nutrition Notes Start: 05/07/21 14:14 Freq: Status: Discharge Protocol: Document 05/08/21 09:44 (Rec: 05/08/21 09:49 CATRINA [id number]) Nutrition Notes Initial or Follow up Assessment Current Diagnosis Diabetes,Heart Failure,Stroke Other Pertinent Diagnosis medial noncompliance Current Diet NPO Labs/Tests BG 410 Pertinent Medications NS at 100 ml/hr Height 5 ft 5 in Weight 98.2 kg [place] Body Weight (kg) 56.81 BMI 36.0 Weight Status Obese Subjective/Other Information MD order for TF. Pt has failed [facility] eval and will need therapy. DHT in place. Burn Absent Trauma Absent Difficulty In Swallowing Current % PO Negligible Minimum of two criteria No physical signs of malnutrition #2 Nutrition Diagnosis Swallowing difficulty Etiology CVA As Evidenced by Signs and Symptoms pt with DHT due to failed swallow eval #1 Nutrition Diagnosis Limited adherence to nutrition -related recommendations Diagnosis Progress(for reassessment Continues documentation) Is patient on ventilator? No Is Patient Ambulatory and/or Out of Bed No REE-([facility]-confined to bed) 1968.396 Kcal/Kg value to use for calculation 14 Approximate Energy Requirements Using 1375 kcal/Kg Calculation Used for Recommendations Kcal/kg Additional Notes Protein: (0.8-1g/kg AdjBW: 77. 5kg) 62-78g Fluid: 1 ml/kcal or per MD Nutrition Intervention Change Diet Order: Start TF Nutrition Support: Glucerna 1.2 at 50 ml/hr Flush 100 ml q4h Kcal 1,440 Protein (gm) 72 Fluid (mL) 966 Goal #1 Meet at least 75% of protein and energy needs via TF Anticipated Discharge Needs: Unable to determine at this time Follow-Up By: 05/10/21 Additional Comments FU for TF start and tolerance
[2021-05-08 16:53] LABS: Creatinine,Urine 167.4 mg/dL (0.1-20.0)
[2021-05-08 18:53] VITALS: BP 137/92
[2021-05-08] MEDS ORDERED: INSULIN REGULAR, HUMAN 100 UNITS/1 ML SUB-Q ONE (19:30)
[2021-05-08 20:47] LABS: Creatinine,Urine 165.3 mg/dL (0.1-20.0); Protein/Creatinine Ratio,Urine 0.87
== END 2021-05-08 19:20 | disposition short-term general hospital (02) | DRG 65 ==
LOC: ED 22:31 → CC1 05-07 02:31
PROVIDERS: ADMIT Hospitalist; ATTEND Family Medicine
DX: I63.9 Cerebral infarction, unspecified (principal); I16.1 Hypertensive emergency; N17.9 Acute kidney failure, unspecified; E11.65 Type 2 diabetes mellitus with hyperglycemia; E66.9 Obesity, unspecified; E78.5 Hyperlipidemia, unspecified; E04.9 Nontoxic goiter, unspecified; D64.9 Anemia, unspecified; D72.829 Elevated white blood cell count, unspecified; Z79.899 Other long term (current) drug therapy; I25.2 Old myocardial infarction; Z91.19 Patient's noncompliance with other medical treatment and regimen; Z79.891 Long term (current) use of opiate analgesic; Z79.01 Long term (current) use of anticoagulants
CPT/HCPCS: 36415; 70450; 70490; 70544; 70547; 70551; 71045; 74018; 80048; 80053; 80061; 80320; 82550; 82553; 82570; 82962; 83036; 84156; 84300; 84484; 85025; 85027; 85610; 85670; 85730; 89050; 93005; 93306; G0378; A9270-GY; G0480; J0295; J0360; J1170; J1644; J1815; J2060; J2270; J2405; J7030; J7050; P9047